=== PATIENT | female | born 1935 | race Caucasian/White ===

== ENCOUNTER → 2016-10-20 | Outpatient (CLI) | payer OTHER, MEDICAID ==
[2012-11-29 10:23] VITALS: BP 176/79
--- NOTE | 2016-10-22 14:52 | MG ---
HISTORY: SCREENING Comparison: Multiple priors dating back to April 22, 2008 FINDINGS: Bilateral CC and MLO projections of the right and left breast were obtained. Heterogeneously dense fibroglandular tissue is seen to be present without significant interval change. No suspicious arch itectural distortion, mass or clustered microcalcifications can be observed to suggest malignancy. No skin thickening or nipple retraction is appreciated. No pathological lymphadenopathy can be ghazala ntified. Benign-appearing calcifications are noted within the right and left breast. IMPRESSION: NO RADIOGRAPHIC EVIDENCE OF MALIGNANCY. ACR CATEGORY 2 - benign findings. FOLLOW-UP EXAM 1 YEAR. Diagnostic CAD was utilized and reviewed. * 0 (ZERO) - ASSESSMENT INCOMPLETE; ADDITIONAL IMAGING IS NEEDED. * 1/ (ONE) - NEGATIVE. * 2/II (TWO) - BENIGN FINDINGS. * 3/III (THREE) - PROBABLY BENIGN FINDING; SHORT INTERVAL FOLLOW-UP SUGGESTED. * 4/IV (FOUR) - SUSPICIOUS ABNORMALITY; BIOPSY SHOULD BE CONSIDERED. * 5/V (FIVE) - HIGHLY SUSPICIOUS OF MALIGNANCY; BIOPSY SHOULD BE PERFORMED. A NEGATIVE X-RAY REPORT SHOULD NOT DELAY BIOPSY IF A DOMINANT OR CLINICALLY SUSPICIOUS MASS IS PRESENT; 4 TO 8 PERCENT OF CANCERS ARE NOT IDENTIFIED BY X-RAY. A NEG ATIVE REPORT MAY REINFORCE THE CLINICAL IMPRESSION. ADENOSIS AND DENSE BREASTS MAY OBSCURE AN UNDER LYING NEOPLASM. Reported By:
== END ==
LOC: RAD 15:07
PROVIDERS: ATTEND Family Medicine
DX: Z12.31 Encounter for screening mammogram for malignant neoplasm of breast (principal)
CPT/HCPCS: 77067

== ENCOUNTER 2020-02-21 10:51 | Inpatient (IN) ==
--- NOTE | 2020-02-21 11:06 | DR.DIZZY ---
HPI Time seen Time Seen by Provider: 02/21/20 11:00 Complaint Chief Complaint Doctor Comments: pt presents with weakness she usually walks with walker not able to do so today began today no fever chills no n/v/d + dysuria Context Stroke Symptoms: None PMH PMH Past Surgical History: Yes ROS Review of Systems Constitutional: Weakness and Fatigue Eyes: No Symptoms Reported ENTM: No Symptoms Reported Respiratoy: No Symptoms Reported Cardiovascular: No Symptoms Reported Gastrointestinal/Abdominal: No Symptoms Reported Genitourinary: Dysuria Neurological: Weakness Musculoskeletal: Other (weakness usualy walks with walker unable to do so today ) Integumentary: No Symptoms Reported Hematologic/Lymphatic: No Symptoms Reported Endocrine: No Symptoms Reported Psychiatric: No Symptoms Reported All Other Systems: Reviewed and Negative PE Vital Signs Vitals: Pulse Rate 71 Respiratory Rate 18 Blood Pressure 142/66 O2 Sat by Pulse Oximetry 99 General Limitations: Other (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) General Appearance: Alert, In No Apparent Distress and Other (weak ) Head Head Exam: Normal Inspection, Atraumatic and Normocephalic Eyes Eye exam: Normal Appearance, PERRL and EOMI; negative Scleral Icterus, Conjunctival Injection and Nystagmus Pupils: Regular, Round: Bilateral Sclera/Conjunctival: Normal Inspection: Bilateral Anterior Chamber: Normal Inspection: Bilateral Posterior Chamber: Deferred: Bilateral ENT ENT Exam: Normal Exam, Normal Oropharynx, Normal External Ear Exam and Mucous Membranes Moist Neck Neck Exam: Normal Inspection, Full ROM and Trachea Midline; negative Tenderness and Meningismus Chest Chest Inspection: Normal Inspection and Symmetric Chest Wall Rise; negative Tenderness Respiratory Respiratory Exam: Normal Lung Sounds Bilat; negative Accessory Muscle Use and Chest Wall Tenderness Respiratory Exam: Bilateral: Clear to Auscultation Cardiovascular Cardiovascular Exam: Regular Rate, Normal Rhythm and Normal Heart Sounds Abdominal Exam Abdominal Exam: Normal Inspection and Soft; negative Distention, Tenderness, Guarding, Rebound and Rigidity Rectal Rectal Exam: Deferred Extremeties Extremities Exam: Normal Inspection, Full ROM and Other (PT IS WEAK AND FRAIL ) Back Back Exam: Normal Inspection and Full ROM; negative Tenderness, (R) CVA Tenderness, (L) CVA Tenderness and Muscle Spasm Neurologic Neurological Exam: Alert, Oriented X3 and Other (stable [facility] too weak to ambulate) Speech: Expressive Aphasia Psychiatric Psychiatric Exam: Normal Affect and Normal Mood Skin Skin Exam: Warm, Dry and Intact MDM Differential Diagnosis Differential Diagnosis: Anemia, Dehydration, Electrolyte disorder, Hypoglycemia, Myocardial infarction and Other Differential Diagnosis Comment: sepsis uti covid ROR Labs Reviewed Laboratory Results Reviewed?: Yes Result Diagrams: 02/21/20 11:32 02/21/20 11:32 Laboratory: WBC 2.3 X10^3/uL (3.6-10.0) L 02/21/20 11:32 RBC 4.27 X10^6/uL (3.5-5.4) 02/21/20 11:32 Hgb 12.1 g/dL (12.0-16.0) 02/21/20 11:32 Hct 37.6 % (36.0-47.0) 02/21/20 11:32 MCV 88.2 fL (80.0-100.0) 02/21/20 11:32 MCH 28.4 pg (27.0-34.0) 02/21/20 11:32 MCHC 32.2 g/dL (33.0-35.0) L 02/21/20 11:32 RDW 15.0 % (11.6-16.5) 02/21/20 11:32 Plt Count 116 X10^3/uL (150.0-450.0) L 02/21/20 11:32 Plt Count Comment Adequate (ADEQUATE) 02/21/20 11:32 MPV 10.0 fL (7.4-11.0) 02/21/20 11:32 Neut % (Auto) 47.7 % (42.0-75.0) 02/21/20 11:32 Lymph % (Auto) 27.3 % (21.0-51.0) 02/21/20 11:32 [place] % (Auto) 21.2 % (0.0-13.0) H 02/21/20 11:32 Eos % (Auto) 3.5 % (0.9-2.9) H 02/21/20 11:32 Baso % (Auto) 0.3 % (0.2-1.0) 02/21/20 11:32 Neut # (Auto) 1.1 x10^3/uL (2.2-4.8) L 02/21/20 11:32 Lymph # (Auto) 0.6 X10^3/uL (1.3-2.9) L 02/21/20 11:32 [place] # (Auto) 0.5 x10^3/uL (0.3-0.8) 02/21/20 11:32 Eos # (Auto) 0.1 x10^3/uL (0.0-0.2) 02/21/20 11:32 Baso # (Auto) 0.0 X10^3/uL (0.0-0.1) 02/21/20 11:32 Absolute Nucleated RBC 0.1 /100WBC 02/21/20 11:32 Total Counted 100 02/21/20 11:32 Neutrophils % (Manual) 51 % (39-76) 02/21/20 11:32 Band Neutrophils % 1 % (0-10) 02/21/20 11:32 Lymphocytes % (Manual) 30 % (13-43) 02/21/20 11:32 Monocytes % (Manual) 16 % (4-9) H 02/21/20 11:32 Eosinophils % (Manual) 2 % (0-6) 02/21/20 11:32 Plt Morphology Comment Normal (NORMAL) 02/21/20 11:32 RBC Morphology Normal (NORMAL) 02/21/20 11:32 Sodium 138 mmol/L (136-145) 02/21/20 11:32 Corrected Sodium TNP 02/21/20 11:32 Potassium 4.0 mmol/L (3.5-5.1) 02/21/20 11:32 Chloride 101 mmol/L (98-107) 02/21/20 11:32 Carbon Dioxide 27.5 mmol/L (21-32) 02/21/20 11:32 BUN 26 mg/dL (7-18) H 02/21/20 11:32 Creatinine 1.41 mg/dL (0.55-1.02) H 02/21/20 11:32 Est GFR (MDRD) Af Amer 46 (>60) L 02/21/20 11:32 Est GFR (MDRD) Non-Af 38 (>60) L 02/21/20 11:32 Glucose 110 mg/dL (65-99) H 02/21/20 11:32 Lactic Acid 1.9 mmol/L (0.4-2.0) 02/21/20 15:05 Calcium 9.5 mg/dL (8.5-10.1) 02/21/20 11:32 Corrected Calcium 10.4 mg/dL (8.5-10.1) H 02/21/20 11:32 Total Bilirubin 0.20 mg/dL (0.2-1.0) 02/21/20 11:32 AST 31 Units/L (15-37) 02/21/20 11:32 ALT 22 Units/L (12-78) 02/21/20 11:32 Alkaline Phosphatase 129 Units/L (46-116) H 02/21/20 11:32 Troponin I < 0.02 ng/mL (0-1.5) 02/21/20 11:32 B-Natriuretic Peptide 137 pg/mL (0-79) H 02/21/20 11:32 Total Protein 6.4 g/dL (6.4-8.2) 02/21/20 11:32 Albumin 2.9 g/dL (3.4-5.0) L 02/21/20 11:32 Globulin 3.5 g/dL (2.5-4.5) 02/21/20 11:32 Albumin/Globulin Ratio 0.8 Ratio (1.1-2.1) L 02/21/20 11:32 Specimen Type Catherized urine 02/21/20 14:00 Urine Color Yellow (YELLOW) 02/21/20 14:00 Urine Appearance Hazy (CLEAR) 02/21/20 14:00 Urine pH 6.0 (5.0 - 8.0) 02/21/20 14:00 Ur Specific [place] 1.020 (1.000-1.030) 02/21/20 14:00 Urine Protein 2+ (NEGATIVE) 02/21/20 14:00 Urine Glucose (UA) Negative (NEGATIVE) 02/21/20 14:00 Urine Ketones Negative (NEGATIVE) 02/21/20 14:00 Urine Occult Blood 1+ (NEGATIVE) 02/21/20 14:00 Urine Nitrite Positive (NEGATIVE) 02/21/20 14:00 Urine Bilirubin Negative (NEGATIVE) 02/21/20 14:00 Urine Urobilinogen Normal (NORMAL) 02/21/20 14:00 Ur Leukocyte Esterase 2+ (NEGATIVE) 02/21/20 14:00 Urine RBC 3-5 /HPF (0-3) A 02/21/20 14:00 Urine WBC 30-50 /HPF (0-5) A 02/21/20 14:00 Ur Squamous Epith Cells Few /HPF (NEGATIVE) 02/21/20 14:00 Urine Bacteria 2+ /HPF (NEGATIVE) 02/21/20 14:00 Ur Culture Indicated? Yes/culture set up 02/21/20 14:00 Influenza Type A (PCR) Negative (NEGATIVE) 02/21/20 14:18 Influenza Type B (PCR) Negative (NEGATIVE) 02/21/20 14:18 SARS CoV-2 RNA Rapid HEATHER Positive (NEGATIVE) A 02/21/20 14:18 EKG Rate: 72 [place]: Normal Rhythm: NSR Block: LBBB Hypertrophy: LVH ST: Nonsp Opioid Opioid Risk Tool Total: 0 Total Score Risk Category: Low Risk Copyright: Denzel PUGH predicting aberrant behaviors Diagnosis Discharge Problem: Acute UTI, Weakness Pneumonia Qualifiers: Pneumonia type: due to unspecified organism
[2020-02-21 12:03] LABS: ALANINE AMINOTRANSFERASE 22 Units/L (12-78); ALBUMIN 2.9 g/dL (3.4-5.0); ALKALINE PHOSPHATASE 129 Units/L (46-116); ASPARTATE AMINO TRANSFERASE 31 Units/L (15-37); BLOOD UREA NITROGEN 26 mg/dL (7-18); CALCIUM 9.5 mg/dL (8.5-10.1); CARBON DIOXIDE 27.5 mmol/L (21-32); CHLORIDE 101 mmol/L (98-107); COR CA(FOR HYPOALB) 10.4 mg/dL (8.5-10.1); CREATININE 1.41 mg/dL (0.55-1.02); SODIUM 138 mmol/L (136-145); TOTAL PROTEIN 6.4 g/dL (6.4-8.2); TROPONIN I < 0.02 ng/mL (0-1.5); eGFR NON BLACK RACES 38 (>60)
[2020-02-21 12:15] LABS: BASOPHILS % (AUTO) 0.3 % (0.2-1.0); EOSINOPHILS # (AUTO) 0.1 x10^3/uL (0.0-0.2); EOSINOPHILS % (AUTO) 3.5 % (0.9-2.9); HEMATOCRIT 37.6 % (36.0-47.0); HEMOGLOBIN 12.1 g/dL (12.0-16.0); LYMPHOCYTES # (AUTO) 0.6 X10^3/uL (1.3-2.9); LYMPHOCYTES % (AUTO) 27.3 % (21.0-51.0); MEAN CORPUSCULAR HEMOGLOBIN 28.4 pg (27.0-34.0); MEAN CORPUSCULAR HGB CONC 32.2 g/dL (33.0-35.0); MEAN CORPUSCULAR VOLUME 88.2 fL (80.0-100.0); MONOCYTES # (AUTO) 0.5 x10^3/uL (0.3-0.8); MONOCYTES % (AUTO) 21.2 % (0.0-13.0); NEUTROPHILS # (AUTO) 1.1 x10^3/uL (2.2-4.8); NEUTROPHILS % (AUTO) 47.7 % (42.0-75.0); PLATELET COUNT 116 X10^3/uL (150.0-450.0); RED BLOOD COUNT 4.27 X10^6/uL (3.5-5.4); WHITE BLOOD COUNT 2.3 X10^3/uL (3.6-10.0)
--- NOTE | 2020-02-21 12:25 | RAD ---
HISTORYPER EMS, PT HAVING GENERALIZED WEAKNESS, VOMITTING THIS AM AND "COULDN'T WALK LIKE SHE NORMALLY DOES" PT HAS HX OF CVA WITH DIFFICULTY WITH EXPRESSION OF WORDS. ABLE TO MAKE NEEDS KNOWNSTUDYCHEST, 1 VIEWCOMPARISONNoneFINDINGSThe trachea is midline. Normal heart size. There is prominence of the aortic knob. There is interstitial radiopacities in the midlung zonesNo evidence of pleural effusion. There is also some emphysema in the upper lobes. No pneumothoraxIMPRESSIONInterstitial radiopacities in the midlung zones, viral pneumonia is not excluded. We do not have priors for comparison.Electronically signed by: Jessica Hammond (Feb 21, 2020 12:24:01)
[2020-02-21] MEDS ORDERED: ZITHROMAX INJ 500 MG VIAL 500 MG in NS 250 ML IV 250 ML IV SCH ×3 (12:34→15:49)
[2020-02-21] MEDS ORDERED: DECADRON INJ IVP ONE ×2 (12:34→13:24)
[2020-02-21] MEDS ORDERED: VENTOLIN or PROAIR HFA IN ONE ×2 (12:34→13:24)
[2020-02-21 12:42] LABS: BAND NEUTROPHILS % 1 % (0-10); PLATELET MORPHOLOGY COMMENT NORMAL (NORMAL)
[2020-02-21] MEDS ORDERED: ZITHROMAX INJ 500 MG VIAL IV ONE (12:57)
[2020-02-21] MEDS ORDERED: DECADRON INJ ONE (12:57)
[2020-02-21] MEDS ORDERED: NS 1000 ML 1,000 ML ONE (12:57)
[2020-02-21] MEDS ORDERED: NS 250 ML IV 250 ML IV ONE (12:57)
[2020-02-21] MEDS: NS 1000 ML 1,000 ML IV SCH ×2 (13:05→22:00)
[2020-02-21 14:51] LABS: APPEARANCE,URINE HAZY (CLEAR); BLOOD/HEMOGLOBIN,URINE 1+ (NEGATIVE); COLOR,URINE YELLOW (YELLOW); GLUCOSE, URINE NEGATIVE (NEGATIVE); KETONES,URINE NEGATIVE (NEGATIVE); NITRITES,URINE POSITIVE (NEGATIVE); PROTEIN,URINE 2+ (NEGATIVE)
[2020-02-21 14:52] LABS: BACTERIA,URINE 2+ /HPF (NEGATIVE); BILIRUBIN,URINE NEGATIVE (NEGATIVE); LEUKOCYTE ESTERASE ,URINE 2+ (NEGATIVE); SQUAMOUS EPITHELIAL CELL,UR FEW /HPF (NEGATIVE); UROBILINOGEN,URINE NORMAL (NORMAL)
[2020-02-21] MEDS ORDERED: VENTOLIN or PROAIR HFA IN PRN (15:46)
[2020-02-21] MEDS: ROCEPHIN 1 GRAM IV PREMIX 1 G/50 ML IV.SOLN. IV SCH (17:00)
[2020-02-21] MEDS: NORCO 5/325 MG TAB PO PRN (20:43)
[2020-02-21] MEDS: RESTORIL CAP 15 MG PO PRN (20:44)
[2020-02-22] MEDS: NS 1000 ML 1,000 ML IV SCH ×3 (04:52→21:09)
[2020-02-22 06:59] LABS: BASOPHILS % (AUTO) 0.2 % (0.2-1.0); HEMATOCRIT 36.8 % (36.0-47.0); LYMPHOCYTES # (AUTO) 0.3 X10^3/uL (1.3-2.9); LYMPHOCYTES % (AUTO) 10.8 % (21.0-51.0); MEAN CORPUSCULAR HEMOGLOBIN 28.6 pg (27.0-34.0); MEAN CORPUSCULAR HGB CONC 32.7 g/dL (33.0-35.0); MEAN CORPUSCULAR VOLUME 87.3 fL (80.0-100.0); MEAN PLATELET VOLUME 9.6 fL (7.4-11.0); MONOCYTES # (AUTO) 0.7 x10^3/uL (0.3-0.8); MONOCYTES % (AUTO) 21.9 % (0.0-13.0); NEUTROPHILS % (AUTO) 67.1 % (42.0-75.0); PLATELET COUNT 137 X10^3/uL (150.0-450.0); RED BLOOD COUNT 4.21 X10^6/uL (3.5-5.4); RED CELL DISTRIBUTION WIDTH 14.3 % (11.6-16.5)
[2020-02-22 07:11] LABS: ALBUMIN 2.8 g/dL (3.4-5.0); CALCIUM 9.6 mg/dL (8.5-10.1); COR CA(FOR HYPOALB) 10.6 mg/dL (8.5-10.1); CREATININE 1.12 mg/dL (0.55-1.02); TOTAL PROTEIN 6.3 g/dL (6.4-8.2)
[2020-02-22 07:16] LABS: CARBON DIOXIDE 22.3 mmol/L (21-32)
[2020-02-22 07:37] LABS: PLATELET MORPHOLOGY COMMENT NORMAL (NORMAL)
[2020-02-22 09:04] VITALS: BMI 35.9
[2020-02-22] MEDS ORDERED: PriLOSEC PO SCH (10:00)
[2020-02-22] MEDS: ZITHROMAX INJ 500 MG VIAL 500 MG in D5W 250 ML IV 250 ML IV SCH ×2 (11:01→11:28)
[2020-02-22] MEDS: PROTONIX INJ 40 MG VIAL IVP SCH ×2 (11:02→20:09)
[2020-02-22] MEDS: DECADRON INJ IVP SCH (11:03)
[2020-02-22] MEDS: ROCEPHIN 1 GRAM IV PREMIX 1 G/50 ML IV.SOLN. IV SCH (11:03)
[2020-02-22] MEDS: COZAAR PO SCH (11:04)
[2020-02-22] MEDS: ELAVIL PO SCH ×2 (11:06→20:08)
[2020-02-22] MEDS: LOPRESSOR TAB 50 MG PO SCH ×2 (11:08→20:08)
[2020-02-22] MEDS: ATIVAN TAB 1 MG PO SCH ×2 (11:20→21:48)
[2020-02-22] MEDS: LASIX PO SCH (11:20)
[2020-02-22] MEDS: SYNTHROID 150 mcg TAB PO SCH (11:21)
[2020-02-22] MEDS: PERPHENAZINE 2 MG PO SCH ×2 (11:36→20:09)
[2020-02-22] MEDS ORDERED: REMDESIVIR 200 MG in NS 250 ML IV 250 ML IV SCH (14:00)
--- NOTE | 2020-02-22 14:05 | DR.H&P ---
H&P - History & Physical for Day of: H&P Date: 02/21/20 - Chief Complaint Chief Complaint: DIFFUSE WEAKNESS, POOR PO INTAKE, COUGH COVID 19+ - History of Present Illness History of Present Illness: PT IS 85 WF ER ADMISSION WITH CO INCREASED DIFFUSE WEAKNESS AND IMPAIRED MOBILITY FOLLOWING COVID 19 VIRAL ILLNESS. CAREGIVER REPORTS SHE HAD NOT BEEN EATING AND DRINKING MUCH, CANNOT MANAGE HER AT HOME WITH WEAKNESS. PT HAD PMH OF AFIB, HTN, CAD, MAYRA, CHRONIC DEMENTIA. PT HAD PNEUMONIA ON CXR. PT ADMITTED FOR EVALUATION OF ACUTE ILLNESS - Past Medical History Past Medical History: CHF, COPD, CVA, Hypertension, Hyperthyroidism - Past Surgical History Surgical History: Hysterectomy - Family History Family Medical History: Diabetes Mellitus, Hypertension - Social History Does patient currently use any type of tobacco product: No Have you used tobacco products in the last 12 months: No Type of Tobacco Use: None Does any household member use tobacco: No Alcohol Use: None Drug Use: None - Medications Home Medications: Penicillins Allergy (Verified 02/21/20 11:09) CONTINUE taking the following medications amitriptyline 10 mg PO BID 02/21/20 [History] furosemide 40 mg PO DAILY 02/21/20 [History] hydroxychloroquine 200 mg PO DAILY 02/21/20 [History] levothyroxine 150 mcg PO DAILY 02/21/20 [History] lorazepam 1 mg PO BID 02/21/20 [History] losartan 50 mg PO DAILY 02/21/20 [History] metoprolol tartrate 75 mg PO BID 02/21/20 [History] omeprazole 40 mg PO DAILY 02/21/20 [History] oxycodone-acetaminophen 1 tab PO .Q6HH 02/21/20 [History] perphenazine 2 mg PO BID 02/21/20 [History] potassium chloride 20 meq PO DAILY 02/21/20 [History] - Review of Systems Constitutional: Weakness, Malaise Eyes: No Symptoms Reported ENT: No Symptoms Reported Respiratory: Cough Cardiovascular: No Symptoms Reported Gastrointestinal: Nausea, Other (LOSS OF APPETITE) Genitourinary: No Symptoms Reported Musculoskeletal: No Symptoms Reported Skin: No Symptoms Reported Neurological: Weakness, Confusion - Physical Exam Vital Signs: Temperature 99.8 F Pulse Rate [Left Radial] 94 Pulse Rate 117 Respiratory Rate 20 Blood Pressure [Left Arm] 132/62 Blood Pressure 125/64 O2 Sat by Pulse Oximetry 95 Oriented: Normal Eyes: Normal Ear: Normal Nose: Normal Throat: Normal Respiratory: RLL Diminished, LLL Diminished Cardiovascular: Tachycardia, Irregular : Normal Auscultation: Bowel Sounds: Normal Palpation: Normal Tenderness: Normal Skin: Decreased Turgur Musculoskeletal: Normal Psychiatric: Anxiety Affect: Anxious Speech Pattern: Inappropriate - Assessment/Plan (1) Pneumonia Qualifiers: Pneumonia type: due to unspecified organism Status: Acute Plan: ADMIT, CARDIAC MONITORING, VERIFY AND RESUME HOME MEDICATION. BC AND UC, IV HYDRATION. BP CONTROL, SUPPLEMENTAL O2. IV ATBX, IV REMDESIVIR (2) Afib Status: Acute (3) Dementia Status: Acute (4) COVID-19 Status: Acute (5) Acute UTI Status: Acute (6) Weakness Status: Acute - Allergies Allergies/Adverse Reactions: Allergies Allergy/AdvReac Type Severity Reaction Status Date / Time Penicillins Allergy Verified 02/21/20 11:09
[2020-02-22] MEDS: HALDOL INJ IVP PRN (16:52)
[2020-02-23] MEDS: NS 1000 ML 1,000 ML IV SCH ×4 (05:44→20:21)
--- NOTE | 2020-02-23 06:22 | RAD ---
HISTORYcovidSTUDYAP [id number]/17/2020FINDINGSContinued normal heart size and contour. Slight interval increase in bilateral interstitial midlung infiltrates. No focal consolidation, pleural fluid component or pneum othorax seen.IMPRESSIONInterval increase in bilateral perihilar midlung infiltrates consistent with a typical pneumonia.Electronically signed by: SANTIAGO BELL (Feb 23, 2020 06:20:51)
[2020-02-23 06:47] LABS: BASOPHILS % (AUTO) 0.1 % (0.2-1.0); HEMATOCRIT 35.4 % (36.0-47.0); HEMOGLOBIN 11.5 g/dL (12.0-16.0); LYMPHOCYTES # (AUTO) 0.5 X10^3/uL (1.3-2.9); LYMPHOCYTES % (AUTO) 14.5 % (21.0-51.0); MEAN CORPUSCULAR HEMOGLOBIN 28.5 pg (27.0-34.0); MEAN CORPUSCULAR HGB CONC 32.6 g/dL (33.0-35.0); MEAN CORPUSCULAR VOLUME 87.4 fL (80.0-100.0); MEAN PLATELET VOLUME 9.5 fL (7.4-11.0); MONOCYTES # (AUTO) 0.7 x10^3/uL (0.3-0.8); MONOCYTES % (AUTO) 20.2 % (0.0-13.0); NEUTROPHILS # (AUTO) 2.2 x10^3/uL (2.2-4.8); NEUTROPHILS % (AUTO) 65.2 % (42.0-75.0); PLATELET COUNT 169 X10^3/uL (150.0-450.0); RED BLOOD COUNT 4.05 X10^6/uL (3.5-5.4); RED CELL DISTRIBUTION WIDTH 14.6 % (11.6-16.5); WHITE BLOOD COUNT 3.4 X10^3/uL (3.6-10.0)
[2020-02-23 06:54] LABS: ALBUMIN 2.6 g/dL (3.4-5.0); CALCIUM 9.2 mg/dL (8.5-10.1); CARBON DIOXIDE 28.4 mmol/L (21-32); COR CA(FOR HYPOALB) 10.3 mg/dL (8.5-10.1); CREATININE 1.13 mg/dL (0.55-1.02); TOTAL PROTEIN 5.9 g/dL (6.4-8.2)
[2020-02-23 07:11] LABS: BAND NEUTROPHILS % 1 % (0-10); PLATELET MORPHOLOGY COMMENT NORMAL (NORMAL)
[2020-02-23] MEDS: ATIVAN TAB 1 MG PO SCH ×2 (10:08→20:20)
[2020-02-23] MEDS: COZAAR PO SCH (10:08)
[2020-02-23] MEDS: LOPRESSOR TAB 50 MG PO SCH ×2 (10:09→20:21)
[2020-02-23] MEDS: K-DUR TAB 20 MEQ PO SCH (10:09)
[2020-02-23] MEDS: LASIX PO SCH (10:09)
[2020-02-23] MEDS: ELAVIL PO SCH ×2 (10:09→20:21)
[2020-02-23] MEDS: PLAQUENIL PO SCH (10:10)
[2020-02-23] MEDS: PROTONIX INJ 40 MG VIAL IVP SCH ×2 (10:10→20:21)
[2020-02-23] MEDS: REMDESIVIR 100 MG in NS 250 ML IV 250 ML IV SCH (10:11)
[2020-02-23] MEDS: ROCEPHIN 1 GRAM IV PREMIX 1 G/50 ML IV.SOLN. IV SCH (10:11)
[2020-02-23] MEDS: SYNTHROID 150 mcg TAB PO SCH (10:12)
[2020-02-23] MEDS: PERPHENAZINE 2 MG PO SCH ×2 (10:12→20:21)
[2020-02-23] MEDS: ZITHROMAX INJ 500 MG VIAL 500 MG in D5W 250 ML IV 250 ML IV SCH (10:12)
[2020-02-23] MEDS: DECADRON INJ IVP SCH (10:19)
[2020-02-23] MEDS ORDERED: LASIX IVP ONE (10:47)
[2020-02-23] MEDS: LEVAQUIN PREMIX IV 500 MG 500 MG/100 ML BAG IV SCH (12:21)
[2020-02-23] MEDS: HALDOL INJ IVP PRN (19:47)
[2020-02-24] MEDS: NS 1000 ML 1,000 ML IV SCH ×3 (05:22→21:05)
[2020-02-24 06:38] LABS: BASOPHILS % (AUTO) 0.1 % (0.2-1.0); HEMATOCRIT 36.7 % (36.0-47.0); HEMOGLOBIN 12.1 g/dL (12.0-16.0); LYMPHOCYTES # (AUTO) 0.5 X10^3/uL (1.3-2.9); LYMPHOCYTES % (AUTO) 12.9 % (21.0-51.0); MEAN CORPUSCULAR HEMOGLOBIN 28.7 pg (27.0-34.0); MEAN CORPUSCULAR VOLUME 87.1 fL (80.0-100.0); MEAN PLATELET VOLUME 9.5 fL (7.4-11.0); MONOCYTES # (AUTO) 0.7 x10^3/uL (0.3-0.8); MONOCYTES % (AUTO) 18.8 % (0.0-13.0); NEUTROPHILS # (AUTO) 2.7 x10^3/uL (2.2-4.8); NEUTROPHILS % (AUTO) 68.2 % (42.0-75.0); PLATELET COUNT 189 X10^3/uL (150.0-450.0); RED BLOOD COUNT 4.21 X10^6/uL (3.5-5.4); RED CELL DISTRIBUTION WIDTH 14.6 % (11.6-16.5)
[2020-02-24 06:47] LABS: ALBUMIN 2.5 g/dL (3.4-5.0); CALCIUM 9.2 mg/dL (8.5-10.1); CARBON DIOXIDE 27.9 mmol/L (21-32); COR CA(FOR HYPOALB) 10.4 mg/dL (8.5-10.1); CREATININE 1.15 mg/dL (0.55-1.02); TOTAL PROTEIN 5.8 g/dL (6.4-8.2)
[2020-02-24] MEDS: ATIVAN TAB 1 MG PO SCH ×2 (08:13→20:25)
[2020-02-24] MEDS: K-DUR TAB 20 MEQ PO SCH (08:14)
[2020-02-24] MEDS: LASIX PO SCH (08:14)
[2020-02-24] MEDS: ELAVIL PO SCH ×2 (08:14→20:25)
[2020-02-24] MEDS: COZAAR PO SCH (08:14)
[2020-02-24] MEDS: LOPRESSOR TAB 50 MG PO SCH ×2 (08:15→20:25)
[2020-02-24] MEDS: LEVAQUIN PREMIX IV 500 MG 500 MG/100 ML BAG IV SCH (08:15)
[2020-02-24] MEDS: PERPHENAZINE 2 MG PO SCH ×2 (08:16→20:14)
[2020-02-24] MEDS: SYNTHROID 150 mcg TAB PO SCH (08:16)
[2020-02-24] MEDS: PLAQUENIL PO SCH (08:16)
[2020-02-24] MEDS: PROTONIX INJ 40 MG VIAL IVP SCH ×2 (08:17→20:40)
[2020-02-24] MEDS: ZITHROMAX INJ 500 MG VIAL 500 MG in D5W 250 ML IV 250 ML IV SCH (08:17)
[2020-02-24] MEDS: REMDESIVIR 100 MG in NS 250 ML IV 250 ML IV SCH (08:17)
[2020-02-24] MEDS: ROBITUSSIN DM PO SCH ×4 (12:36→20:35)
[2020-02-24] MEDS ORDERED: TYLENOL SUPP 650 MG ONE (23:25)
[2020-02-25] MEDS: TYLENOL SUPP 650 MG PR PRN (00:06)
[2020-02-25] MEDS: NS 1000 ML 1,000 ML IV SCH ×3 (05:57→21:49)
[2020-02-25 06:49] LABS: ALBUMIN 2.2 g/dL (3.4-5.0); CARBON DIOXIDE 26.6 mmol/L (21-32); COR CA(FOR HYPOALB) 10.4 mg/dL (8.5-10.1); CREATININE 1.15 mg/dL (0.55-1.02); TOTAL PROTEIN 5.3 g/dL (6.4-8.2)
[2020-02-25 06:58] LABS: BASOPHILS % (AUTO) 0.1 % (0.2-1.0); HEMATOCRIT 37.6 % (36.0-47.0); HEMOGLOBIN 12.3 g/dL (12.0-16.0); LYMPHOCYTES # (AUTO) 0.8 X10^3/uL (1.3-2.9); MEAN CORPUSCULAR HEMOGLOBIN 28.4 pg (27.0-34.0); MEAN CORPUSCULAR HGB CONC 32.7 g/dL (33.0-35.0); MEAN CORPUSCULAR VOLUME 86.8 fL (80.0-100.0); MEAN PLATELET VOLUME 9.5 fL (7.4-11.0); MONOCYTES # (AUTO) 1.4 x10^3/uL (0.3-0.8); MONOCYTES % (AUTO) 17.4 % (0.0-13.0); NEUTROPHILS # (AUTO) 5.8 x10^3/uL (2.2-4.8); NEUTROPHILS % (AUTO) 72.5 % (42.0-75.0); PLATELET COUNT 196 X10^3/uL (150.0-450.0); RED BLOOD COUNT 4.33 X10^6/uL (3.5-5.4); RED CELL DISTRIBUTION WIDTH 14.6 % (11.6-16.5); WHITE BLOOD COUNT 7.9 X10^3/uL (3.6-10.0)
--- NOTE | 2020-02-25 08:24 | RAD ---
HISTORYPNEUMONIASTUDYCHEST, 1 [id number]/19/2020FINDINGSThe trachea is midline. The cardiac silhouette is stable. Worsening bilateral airspace opacities, most prominent in the right upper lobe. The bony thorax is unremarkable.IMPRESSIONWorsening bilateral airspace disease concerning for pneumonia. Recommend follow-up to resolution.Electronically signed by: JONNA FIGUEREDO (Feb 25, 2020 08:22:26)
[2020-02-25] MEDS: COZAAR PO SCH (09:28)
[2020-02-25] MEDS: ATIVAN TAB 1 MG PO SCH ×2 (09:28→23:30)
[2020-02-25] MEDS: ELAVIL PO SCH ×2 (09:28→22:50)
[2020-02-25] MEDS: LEVAQUIN PREMIX IV 500 MG 500 MG/100 ML BAG IV SCH (09:29)
[2020-02-25] MEDS: K-DUR TAB 20 MEQ PO SCH (09:29)
[2020-02-25] MEDS: LOPRESSOR TAB 50 MG PO SCH ×2 (09:32→23:30)
[2020-02-25] MEDS: PROTONIX INJ 40 MG VIAL IVP SCH ×2 (09:33→20:15)
[2020-02-25] MEDS: PLAQUENIL PO SCH (09:33)
[2020-02-25] MEDS: ZITHROMAX INJ 500 MG VIAL 500 MG in D5W 250 ML IV 250 ML IV SCH (09:35)
[2020-02-25 09:36] LABS: ABG BASE EXCESS 0.9 mmol/L (-2.0-2.0); ABG HCO3 23.8 mmol/L (22-26)
[2020-02-25] MEDS: SYNTHROID 150 mcg TAB PO SCH (09:36)
[2020-02-25 09:37] LABS: ABG ALLEN TEST POS
[2020-02-25] MEDS: ROBITUSSIN DM PO SCH ×4 (09:39→21:05)
[2020-02-25] MEDS: DUONEB 0.5 MG/3 MG (3 mL) NEB SCH ×4 (09:40→20:50)
[2020-02-25] MEDS: PULMICORT NEB TX 0.5 MG NEB SCH ×2 (10:17→20:50)
[2020-02-25] MEDS: REMDESIVIR 100 MG in NS 250 ML IV 250 ML IV SCH (10:24)
[2020-02-25] MEDS: PERCOCET TAB 5/325 MG PO PRN (10:42)
[2020-02-25] MEDS: PERPHENAZINE 2 MG PO SCH ×2 (14:22→22:50)
[2020-02-25] MEDS: LOVENOX INJ 40 MG SYR SC SCH (14:23)
[2020-02-25] MEDS ORDERED: LASIX IVP ONE (18:58)
[2020-02-26] MEDS: DUONEB 0.5 MG/3 MG (3 mL) NEB SCH ×6 (00:40→20:00)
--- NOTE | 2020-02-26 05:20 | RAD ---
HISTORYPNEUMONIASTUDYCHEST, 1 [id number]/21/2020FINDINGSThe trachea is midline. The cardiac silhouette is stable. Bilateral pulmonary opacities/infiltrates not appreciably changed. No pneumothorax or large pleural effusions. Low lung volume.. The bony thorax is unremarkable.IMPRESSIONNo appreciable interval change.Electronically signed by: Shannan Vazquez (Feb 26, 2020 05:18:30)
[2020-02-26 06:48] LABS: BASOPHILS % (AUTO) 0.2 % (0.2-1.0); EOSINOPHILS % (AUTO) 0.1 % (0.9-2.9); HEMATOCRIT 37.7 % (36.0-47.0); HEMOGLOBIN 12.4 g/dL (12.0-16.0); LYMPHOCYTES # (AUTO) 0.6 X10^3/uL (1.3-2.9); LYMPHOCYTES % (AUTO) 5.3 % (21.0-51.0); MEAN CORPUSCULAR HEMOGLOBIN 28.7 pg (27.0-34.0); MEAN CORPUSCULAR VOLUME 87.1 fL (80.0-100.0); MEAN PLATELET VOLUME 9.3 fL (7.4-11.0); MONOCYTES # (AUTO) 2.1 x10^3/uL (0.3-0.8); NEUTROPHILS # (AUTO) 7.7 x10^3/uL (2.2-4.8); NEUTROPHILS % (AUTO) 74.4 % (42.0-75.0); PLATELET COUNT 162 X10^3/uL (150.0-450.0); RED BLOOD COUNT 4.33 X10^6/uL (3.5-5.4); RED CELL DISTRIBUTION WIDTH 14.7 % (11.6-16.5); WHITE BLOOD COUNT 10.4 X10^3/uL (3.6-10.0)
[2020-02-26 06:59] LABS: ALBUMIN 2.2 g/dL (3.4-5.0); CALCIUM 9.1 mg/dL (8.5-10.1); CARBON DIOXIDE 25.3 mmol/L (21-32); COR CA(FOR HYPOALB) 10.5 mg/dL (8.5-10.1); CREATININE 1.25 mg/dL (0.55-1.02); TOTAL PROTEIN 5.5 g/dL (6.4-8.2)
[2020-02-26 07:31] LABS: ABG BASE EXCESS 5.2 mmol/L (-2.0-2.0); ABG HCO3 24.2 mmol/L (22-26)
[2020-02-26] MEDS: ATIVAN TAB 1 MG PO SCH ×2 (08:10→21:12)
[2020-02-26] MEDS: COZAAR PO SCH (08:11)
[2020-02-26] MEDS: ELAVIL PO SCH ×2 (08:11→21:12)
[2020-02-26] MEDS: K-DUR TAB 20 MEQ PO SCH (08:12)
[2020-02-26] MEDS: LOPRESSOR TAB 50 MG PO SCH ×2 (08:12→21:13)
[2020-02-26] MEDS: SYNTHROID 150 mcg TAB PO SCH (08:13)
[2020-02-26] MEDS: ROBITUSSIN DM PO SCH ×4 (08:13→21:13)
[2020-02-26] MEDS: PLAQUENIL PO SCH (08:14)
[2020-02-26] MEDS: LEVAQUIN PREMIX IV 500 MG 500 MG/100 ML BAG IV SCH (08:14)
[2020-02-26] MEDS: PERPHENAZINE 2 MG PO SCH ×2 (08:15→21:13)
[2020-02-26] MEDS: PROTONIX INJ 40 MG VIAL IVP SCH ×2 (08:16→21:13)
[2020-02-26] MEDS: LOVENOX INJ 40 MG SYR SC SCH (08:18)
[2020-02-26] MEDS: PULMICORT NEB TX 0.5 MG NEB SCH ×2 (09:40→20:00)
[2020-02-26] MEDS: ZITHROMAX INJ 500 MG VIAL 500 MG in D5W 250 ML IV 250 ML IV SCH (09:42)
[2020-02-26] MEDS: HALDOL INJ IVP PRN (10:10)
[2020-02-26] MEDS: REMDESIVIR 100 MG in NS 250 ML IV 250 ML IV SCH (10:55)
[2020-02-26] MEDS ORDERED: LASIX IVP ONE (11:40)
[2020-02-26 12:28] LABS: BILIRUBIN,URINE NEGATIVE (NEGATIVE); BLOOD/HEMOGLOBIN,URINE NEGATIVE (NEGATIVE); GLUCOSE, URINE NEGATIVE (NEGATIVE); KETONES,URINE NEGATIVE (NEGATIVE); LEUKOCYTE ESTERASE ,URINE NEGATIVE (NEGATIVE); NITRITES,URINE NEGATIVE (NEGATIVE); PROTEIN,URINE NEGATIVE (NEGATIVE); UROBILINOGEN,URINE NORMAL (NORMAL)
[2020-02-26 12:29] LABS: APPEARANCE,URINE CLEAR (CLEAR); COLOR,URINE YELLOW (YELLOW)
[2020-02-26] MEDS: LASIX IVP SCH (16:27)
[2020-02-26] MEDS: NS 1000 ML 1,000 ML IV SCH (23:09)
[2020-02-27] MEDS: DUONEB 0.5 MG/3 MG (3 mL) NEB SCH ×6 (00:40→21:05)
[2020-02-27 05:31] LABS: ABG ALLEN TEST POS; ABG BASE EXCESS 5.8 mmol/L (-2.0-2.0); ABG HCO3 30.6 mmol/L (22-26)
[2020-02-27 05:43] LABS: BASOPHILS % (AUTO) 0.1 % (0.2-1.0); EOSINOPHILS % (AUTO) 0.3 % (0.9-2.9); HEMATOCRIT 35.1 % (36.0-47.0); HEMOGLOBIN 11.5 g/dL (12.0-16.0); LYMPHOCYTES # (AUTO) 0.4 X10^3/uL (1.3-2.9); LYMPHOCYTES % (AUTO) 3.7 % (21.0-51.0); MEAN CORPUSCULAR HEMOGLOBIN 28.8 pg (27.0-34.0); MEAN CORPUSCULAR HGB CONC 32.9 g/dL (33.0-35.0); MEAN CORPUSCULAR VOLUME 87.5 fL (80.0-100.0); MONOCYTES # (AUTO) 1.3 x10^3/uL (0.3-0.8); MONOCYTES % (AUTO) 13.2 % (0.0-13.0); NEUTROPHILS # (AUTO) 8.5 x10^3/uL (2.2-4.8); NEUTROPHILS % (AUTO) 82.7 % (42.0-75.0); PLATELET COUNT 230 X10^3/uL (150.0-450.0); RED BLOOD COUNT 4.01 X10^6/uL (3.5-5.4); RED CELL DISTRIBUTION WIDTH 14.9 % (11.6-16.5); WHITE BLOOD COUNT 10.2 X10^3/uL (3.6-10.0)
[2020-02-27 06:08] LABS: ALBUMIN 2.1 g/dL (3.4-5.0); CALCIUM 9.4 mg/dL (8.5-10.1); CARBON DIOXIDE 30.4 mmol/L (21-32); COR CA(FOR HYPOALB) 10.9 mg/dL (8.5-10.1); CREATININE 1.28 mg/dL (0.55-1.02); TOTAL PROTEIN 5.5 g/dL (6.4-8.2)
--- NOTE | 2020-02-27 07:37 | RAD ---
HISTORYCOVID+STUDYCHEST, 1 [id number]/22/2020TECHNIQUEAP view of the chestFINDINGSCardiac and mediastinal contours appear stable. No significant change in multifocal bilateral airspace disease. No definite pleural effusion or pneumothorax.IMPRESSIONNo significant change.Electronically signed by: Sacha German (Feb 27, 2020 07:35:40)
[2020-02-27] MEDS: PULMICORT NEB TX 0.5 MG NEB SCH ×2 (08:58→21:05)
[2020-02-27] MEDS: ZITHROMAX INJ 500 MG VIAL 500 MG in D5W 250 ML IV 250 ML IV SCH (10:41)
[2020-02-27] MEDS: COZAAR PO SCH (10:41)
[2020-02-27] MEDS: SYNTHROID 150 mcg TAB PO SCH (10:41)
[2020-02-27] MEDS: ATIVAN TAB 1 MG PO SCH (10:41)
[2020-02-27] MEDS: K-DUR TAB 20 MEQ PO SCH (10:41)
[2020-02-27] MEDS: LASIX IVP SCH ×2 (10:42→17:30)
[2020-02-27] MEDS: PROTONIX INJ 40 MG VIAL IVP SCH ×2 (10:42→22:30)
[2020-02-27] MEDS: PLAQUENIL PO SCH (10:42)
[2020-02-27] MEDS: PERPHENAZINE 2 MG PO SCH ×2 (10:42→22:30)
[2020-02-27] MEDS: ELAVIL PO SCH ×2 (10:43→22:30)
[2020-02-27] MEDS: LOPRESSOR TAB 50 MG PO SCH ×2 (10:43→22:30)
[2020-02-27] MEDS: LOVENOX INJ 40 MG SYR SC SCH (10:43)
[2020-02-27] MEDS: LEVAQUIN PREMIX IV 250 MG 250 MG/50 ML BAG IV SCH (10:43)
[2020-02-27] MEDS: SOLU-Medrol 40 MG VIAL IVP SCH ×3 (11:00→22:30)
[2020-02-27] MEDS: ROBITUSSIN DM PO SCH ×4 (12:50→22:30)
--- NOTE | 2020-02-27 15:42 | RAD ---
HISTORYABD DISENTION HTN, HYSTERECTOMYSTUDYKUBCOMPARISONNoneFINDINGSEvaluation of the abdomen demonstrates a normal bowel gas p attern. There is very mild gassy is distention of the stomach but no small bowel or colonic distentio n. No pathological soft tissue mass or calcification can be observed. The bony structures are grossl y intact. Degenerative spondylosis is seen in the upper lumbar spine. There is diffuse osteopeniaIMPR ESSIONNo evidence for acute abdominal pathology identified. The gastric air bubble is mildly distende d with a air.Electronically signed by: JOEL COYLE (Feb 27, 2020 15:39:40)
[2020-02-27] MEDS: HALDOL INJ IVP PRN (19:34)
[2020-02-27] MEDS: ATIVAN TAB 0.5 MG PO SCH (22:29)
[2020-02-27] MEDS: NS 1000 ML 1,000 ML IV SCH (22:29)
[2020-02-28] MEDS: NORCO 5/325 MG TAB PO PRN ×2 (00:18→21:10)
[2020-02-28] MEDS: RESTORIL CAP 15 MG PO PRN ×2 (00:19→21:11)
[2020-02-28] MEDS: DUONEB 0.5 MG/3 MG (3 mL) NEB SCH ×6 (00:44→21:40)
[2020-02-28 04:28] LABS: ABG BASE EXCESS 8.9 mmol/L (-2.0-2.0)
[2020-02-28 04:29] LABS: ABG ALLEN TEST POS; ABG HCO3 33.5 mmol/L (22-26)
[2020-02-28] MEDS: SOLU-Medrol 40 MG VIAL IVP SCH ×3 (05:06→21:10)
[2020-02-28 05:36] LABS: BASOPHILS % (AUTO) 0.5 % (0.2-1.0); HEMOGLOBIN 11.4 g/dL (12.0-16.0); LYMPHOCYTES # (AUTO) 0.2 X10^3/uL (1.3-2.9); LYMPHOCYTES % (AUTO) 3.5 % (21.0-51.0); MEAN CORPUSCULAR HEMOGLOBIN 28.1 pg (27.0-34.0); MEAN CORPUSCULAR HGB CONC 31.8 g/dL (33.0-35.0); MEAN CORPUSCULAR VOLUME 88.5 fL (80.0-100.0); MEAN PLATELET VOLUME 9.7 fL (7.4-11.0); MONOCYTES # (AUTO) 0.7 x10^3/uL (0.3-0.8); MONOCYTES % (AUTO) 9.7 % (0.0-13.0); NEUTROPHILS # (AUTO) 5.8 x10^3/uL (2.2-4.8); NEUTROPHILS % (AUTO) 86.3 % (42.0-75.0); PLATELET COUNT 253 X10^3/uL (150.0-450.0); RED BLOOD COUNT 4.07 X10^6/uL (3.5-5.4); RED CELL DISTRIBUTION WIDTH 14.9 % (11.6-16.5); WHITE BLOOD COUNT 6.8 X10^3/uL (3.6-10.0)
[2020-02-28 05:47] LABS: ALBUMIN 2.1 g/dL (3.4-5.0); CALCIUM 9.7 mg/dL (8.5-10.1); CARBON DIOXIDE 31.8 mmol/L (21-32); COR CA(FOR HYPOALB) 11.2 mg/dL (8.5-10.1); CREATININE 1.32 mg/dL (0.55-1.02); TOTAL PROTEIN 5.6 g/dL (6.4-8.2)
[2020-02-28] MEDS: HALDOL INJ IVP PRN (06:45)
[2020-02-28] MEDS: PULMICORT NEB TX 0.5 MG NEB SCH ×2 (08:45→21:40)
[2020-02-28] MEDS: LEVAQUIN PREMIX IV 250 MG 250 MG/50 ML BAG IV SCH (10:22)
[2020-02-28] MEDS: K-DUR TAB 20 MEQ PO SCH ×2 (10:23→11:05)
[2020-02-28] MEDS: PROTONIX INJ 40 MG VIAL IVP SCH ×2 (10:24→21:08)
[2020-02-28] MEDS: SYNTHROID 150 mcg TAB PO SCH (10:25)
[2020-02-28] MEDS: PLAQUENIL PO SCH (10:25)
[2020-02-28] MEDS: ROBITUSSIN DM PO SCH ×4 (10:25→21:10)
[2020-02-28] MEDS: LOVENOX INJ 40 MG SYR SC SCH (10:26)
[2020-02-28] MEDS: LOPRESSOR TAB 50 MG PO SCH ×2 (10:26→21:06)
[2020-02-28] MEDS: COZAAR PO SCH (10:27)
[2020-02-28] MEDS: ZITHROMAX INJ 500 MG VIAL 500 MG in D5W 250 ML IV 250 ML IV SCH (10:30)
[2020-02-28] MEDS: ATIVAN TAB 0.5 MG PO SCH ×2 (10:30→21:06)
[2020-02-28] MEDS: LASIX IVP SCH ×3 (10:36→17:43)
[2020-02-28] MEDS: PERPHENAZINE 2 MG PO SCH ×2 (10:36→21:00)
--- NOTE | 2020-02-28 10:36 | RAD ---
HISTORYcovid pneumoniaSTUDYAP [id number]/23/2020FINDINGSNormal heart size and configuration. Interval improvement in bilateral infiltrates. Slight residual parenchymal density remains in the perihilar areas. No new abnormality demonstrated.IMPRESSIONInterval decrease in bilateral infiltrates with no new abnormality identified.Electronically signed by: SANTIAGO BELL (Feb 28, 2020 10:35:03)
[2020-02-28] MEDS: ELAVIL PO SCH ×2 (10:51→21:06)
[2020-02-28] MEDS ORDERED: K-DUR TAB 20 MEQ PO PRN (11:07)
[2020-02-28] MEDS ORDERED: POTASSIUM CHL 40 MEQ/NS 0.45% 500 ML IV PRN (11:07)
[2020-02-28] MEDS ORDERED: POTASSIUM CHL 60 MEQ/NS 0.45% 500 ML IV PRN (11:07)
[2020-02-28] MEDS ORDERED: MICRO K EXTEN CAP 10 MEQ PO PRN (11:07)
[2020-02-28] MEDS ORDERED: KLOR-CON PO PRN (11:07)
[2020-02-28] MEDS ORDERED: POTASSIUM CHLORIDE LIQ 20 MEQ UDC PO PRN (11:07)
[2020-02-28] MEDS: K-RIDER 10 MEQ/NS 100 ML 10 MEQ/100 ML BAG IV PRN ×2 (16:25→18:39)
[2020-02-28] MEDS ORDERED: NS + KCL 20 MEQ/L 1,000 ML IV SCH (18:00)
[2020-02-29] MEDS: DUONEB 0.5 MG/3 MG (3 mL) NEB SCH ×6 (01:24→22:00)
[2020-02-29] MEDS ORDERED: HALDOL INJ ONE (05:13)
[2020-02-29] MEDS: HALDOL INJ IVP PRN (05:49)
[2020-02-29] MEDS: SOLU-Medrol 40 MG VIAL IVP SCH ×3 (05:50→21:11)
[2020-02-29 05:57] LABS: ABG BASE EXCESS 8.1 mmol/L (-2.0-2.0)
[2020-02-29 05:58] LABS: ABG ALLEN TEST POS; ABG HCO3 32.8 mmol/L (22-26)
[2020-02-29 06:18] LABS: BASOPHILS % (AUTO) 0.2 % (0.2-1.0); HEMATOCRIT 37.8 % (36.0-47.0); HEMOGLOBIN 12.1 g/dL (12.0-16.0); LYMPHOCYTES # (AUTO) 0.2 X10^3/uL (1.3-2.9); LYMPHOCYTES % (AUTO) 1.9 % (21.0-51.0); MEAN CORPUSCULAR HEMOGLOBIN 28.3 pg (27.0-34.0); MEAN CORPUSCULAR HGB CONC 32.1 g/dL (33.0-35.0); MEAN CORPUSCULAR VOLUME 88.3 fL (80.0-100.0); MEAN PLATELET VOLUME 9.6 fL (7.4-11.0); MONOCYTES # (AUTO) 1.4 x10^3/uL (0.3-0.8); MONOCYTES % (AUTO) 12.8 % (0.0-13.0); NEUTROPHILS # (AUTO) 9.3 x10^3/uL (2.2-4.8); NEUTROPHILS % (AUTO) 85.1 % (42.0-75.0); PLATELET COUNT 314 X10^3/uL (150.0-450.0); RED BLOOD COUNT 4.28 X10^6/uL (3.5-5.4); RED CELL DISTRIBUTION WIDTH 15.3 % (11.6-16.5); WHITE BLOOD COUNT 10.9 X10^3/uL (3.6-10.0)
[2020-02-29 06:22] LABS: ALBUMIN 2.3 g/dL (3.4-5.0); CALCIUM 9.8 mg/dL (8.5-10.1); CARBON DIOXIDE 31.2 mmol/L (21-32); COR CA(FOR HYPOALB) 11.2 mg/dL (8.5-10.1); CREATININE 1.23 mg/dL (0.55-1.02)
[2020-02-29] MEDS: PULMICORT NEB TX 0.5 MG NEB SCH ×2 (09:25→22:00)
[2020-02-29] MEDS: SYNTHROID 150 mcg TAB PO SCH (09:40)
[2020-02-29] MEDS: K-DUR TAB 20 MEQ PO SCH (09:40)
[2020-02-29] MEDS: LOPRESSOR TAB 50 MG PO SCH ×2 (09:41→21:11)
[2020-02-29] MEDS: COZAAR PO SCH (09:41)
[2020-02-29] MEDS: PROTONIX INJ 40 MG VIAL IVP SCH ×2 (09:44→21:11)
[2020-02-29] MEDS: PLAQUENIL PO SCH (09:44)
[2020-02-29] MEDS: MILK OF MAGNESIA PO SCH (09:44)
[2020-02-29] MEDS: ROBITUSSIN DM PO SCH ×4 (09:45→21:12)
[2020-02-29] MEDS: LEVAQUIN PREMIX IV 250 MG 250 MG/50 ML BAG IV SCH (09:45)
[2020-02-29] MEDS: ATIVAN TAB 0.5 MG PO SCH ×2 (09:46→21:13)
[2020-02-29] MEDS: ZITHROMAX INJ 500 MG VIAL 500 MG in D5W 250 ML IV 250 ML IV SCH (09:46)
[2020-02-29] MEDS: LOVENOX INJ 40 MG SYR SC SCH (09:48)
[2020-02-29] MEDS: ELAVIL PO SCH ×2 (09:58→21:13)
[2020-02-29] MEDS: PERPHENAZINE 2 MG PO SCH ×2 (09:59→21:11)
[2020-02-29] MEDS: LASIX IVP SCH ×2 (09:59→18:17)
--- NOTE | 2020-02-29 11:29 | PCM.PROG ---
Progress Note Progress Note for Day of Date of Exam: 02/29/20 Subjective Subjective: Patient seen at bedside, no overnight events. Patient is currently on BiPAP, FiO2 decreased to 45% this morning, sats> 90%. Patient asleep during exam. Labs: WBC 10.9 Hgb 12.1 K: 3.4 BUN/Cr 50/1.23 ABG 7.47/45/76/32.8 CXR: improvement in bilateral infiltrates Urine Cx: E.coli Plan: continue to wean off Bipap as tolerated, keep sats > 90%. Continue solumedrol and Levaquin. Continue potassium replacement. Will DC IVF . Monitor AM labs. Past Medical Family Social History Past Med/Fam/Surg Hx: No changes since H&P Allergies: Allergies Penicillins Allergy (Verified 02/21/20 11:09) Review of Systems ROS: No change since H&P Vital Signs and I&O's Vital Signs: Temperature 98.8 F Pulse Rate [Left Radial] 93 Pulse Rate 110 Respiratory Rate 32 Blood Pressure [Left Arm] 161/68 Blood Pressure 168/72 O2 Sat by Pulse Oximetry 95 Intake and Output: Intake & Output 02/26/20 02/27/20 02/28/20 02/29/20 23:59 23:59 23:59 23:59 Intake Total 1335 / 1335 1274 / 1274 957 / 957 160 / 160 Output Total 2700 / 2700 2300 / 2300 1750 / 1750 175 / 175 Balance -1365 / -1365 -1026 / -1026 -793 / -793 -15 / -15 Physical Exam Oriented: Unable to test Eyes: Normal Ear: Normal Nose: Normal Throat: Normal Respiratory: Generalized and Diminished Cardiovascular: Normal and Edema Auscultation: Bowel Sounds: Normal Tenderness: Normal Skin: Decreased Turgur Musculoskeletal: Normal Psychiatric: Normal Mood Description: Calm Affect: Normal Speech Pattern: Artificially Ventilated (on BiPAP ) Laboratory and Diagnostics Result Diagrams: 02/29/20 04:54 02/29/20 04:54 Labs: 02/21/20 13:00 Blood Blood Culture - Final 02/21/20 12:50 Blood Blood Culture - Final 02/21/20 17:41 Sputum - Expectorated Sputum Sputum Culture - Final 02/21/20 17:41 Sputum - Expectorated Sputum - Final 02/24/20 23:50 Blood Blood Culture - Preliminary 02/24/20 23:44 Blood Blood Culture - Preliminary 02/21/20 14:00 Urine,Catheterized Urine Culture - Final Escherichia Coli Laboratory WBC 10.9 X10^3/uL (3.6-10.0) H 02/29/20 04:54 RBC 4.28 X10^6/uL (3.5-5.4) 02/29/20 04:54 Hgb 12.1 g/dL (12.0-16.0) 02/29/20 04:54 Hct 37.8 % (36.0-47.0) 02/29/20 04:54 MCV 88.3 fL (80.0-100.0) 02/29/20 04:54 MCH 28.3 pg (27.0-34.0) 02/29/20 04:54 MCHC 32.1 g/dL (33.0-35.0) L 02/29/20 04:54 RDW 15.3 % (11.6-16.5) 02/29/20 04:54 Plt Count 314 X10^3/uL (150.0-450.0) 02/29/20 04:54 Plt Count Comment Adequate (ADEQUATE) 02/23/20 06:11 MPV 9.6 fL (7.4-11.0) 02/29/20 04:54 Neut % (Auto) 85.1 % (42.0-75.0) H 02/29/20 04:54 Lymph % (Auto) 1.9 % (21.0-51.0) L 02/29/20 04:54 [place] % (Auto) 12.8 % (0.0-13.0) 02/29/20 04:54 Eos % (Auto) 0.0 % (0.9-2.9) L 02/29/20 04:54 Baso % (Auto) 0.2 % (0.2-1.0) 02/29/20 04:54 Neut # (Auto) 9.3 x10^3/uL (2.2-4.8) H 02/29/20 04:54 Lymph # (Auto) 0.2 X10^3/uL (1.3-2.9) L 02/29/20 04:54 [place] # (Auto) 1.4 x10^3/uL (0.3-0.8) H 02/29/20 04:54 Eos # (Auto) 0.0 x10^3/uL (0.0-0.2) 02/29/20 04:54 Baso # (Auto) 0.0 X10^3/uL (0.0-0.1) 02/29/20 04:54 Absolute Nucleated RBC 0.0 /100WBC 02/29/20 04:54 Total Counted 100 02/23/20 06:11 Neutrophils % (Manual) 60 % (39-76) 02/23/20 06:11 Band Neutrophils % 1 % (0-10) 02/23/20 06:11 Lymphocytes % (Manual) 19 % (13-43) 02/23/20 06:11 Monocytes % (Manual) 20 % (4-9) H 02/23/20 06:11 Eosinophils % (Manual) 2 % (0-6) 02/21/20 11:32 Plt Morphology Comment Normal (NORMAL) 02/23/20 06:11 RBC Morphology Normal (NORMAL) 02/23/20 06:11 Sample Site Rr 02/29/20 06:00 ABG pH 7.470 (7.35-7.45) H 02/29/20 06:00 ABG pCO2 45.0 mmHg (35.0-45.0) 02/29/20 06:00 ABG pO2 76.0 mmHg (80.0-100.0) L 02/29/20 06:00 ABG HCO3 32.8 mmol/L (22-26) H* 02/29/20 06:00 ABG O2 Saturation 96.0 % (90-100) 02/29/20 06:00 ABG Base Excess 8.1 mmol/L (-2.0-2.0) H 02/29/20 06:00 Jay Test Pos 02/29/20 06:00 A-a Gradient 224.0 mmHg 02/29/20 06:00 FiO2 50.0 02/29/20 06:00 Blood Gas Comments Berny well sw 02/29/20 06:00 Sodium 147 mmol/L (136-145) H 02/29/20 04:54 Corrected Sodium 150 mmol/L (136-145) H 02/29/20 04:54 Potassium 3.4 mmol/L (3.5-5.1) L 02/29/20 04:54 Chloride 107 mmol/L (98-107) 02/29/20 04:54 Carbon Dioxide 31.2 mmol/L (21-32) 02/29/20 04:54 BUN 50 mg/dL (7-18) H 02/29/20 04:54 Creatinine 1.23 mg/dL (0.55-1.02) H 02/29/20 04:54 Est GFR (MDRD) Af Amer 54 (>60) L 02/29/20 04:54 Est GFR (MDRD) Non-Af 44 (>60) L 02/29/20 04:54 Glucose 242 mg/dL (65-99) H 02/29/20 04:54 Lactic Acid 1.9 mmol/L (0.4-2.0) 02/21/20 15:05 Calcium 9.8 mg/dL (8.5-10.1) 02/29/20 04:54 Corrected Calcium 11.2 mg/dL (8.5-10.1) H 02/29/20 04:54 Magnesium 2.4 mg/dL (1.7-2.9) 02/28/20 04:42 Ferritin 141 ng/mL (8-252) 02/27/20 04:35 Total Bilirubin 0.40 mg/dL (0.2-1.0) 02/29/20 04:54 AST 14 Units/L (15-37) L 02/29/20 04:54 ALT 18 Units/L (12-78) 02/29/20 04:54 Alkaline Phosphatase 97 Units/L (46-116) 02/29/20 04:54 Troponin I < 0.02 ng/mL (0-1.5) 02/21/20 11:32 C-Reactive Protein 122.30 mg/L (0-3.0) H 02/27/20 04:35 B-Natriuretic Peptide 137 pg/mL (0-79) H 02/21/20 11:32 Total Protein 6.0 g/dL (6.4-8.2) L 02/29/20 04:54 Albumin 2.3 g/dL (3.4-5.0) L 02/29/20 04:54 Globulin 3.7 g/dL (2.5-4.5) 02/29/20 04:54 Albumin/Globulin Ratio 0.6 Ratio (1.1-2.1) L 02/29/20 04:54 Specimen Type Catherized urine 02/26/20 12:15 Urine Color Yellow (YELLOW) 02/26/20 12:15 Urine Appearance Clear (CLEAR) 02/26/20 12:15 Urine pH 6.0 (5.0 - 8.0) 02/26/20 12:15 Ur Specific [place] 1.015 (1.000-1.030) 02/26/20 12:15 Urine Protein Negative (NEGATIVE) 02/26/20 12:15 Urine Glucose (UA) Negative (NEGATIVE) 02/26/20 12:15 Urine Ketones Negative (NEGATIVE) 02/26/20 12:15 Urine Occult Blood Negative (NEGATIVE) 02/26/20 12:15 Urine Nitrite Negative (NEGATIVE) 02/26/20 12:15 Urine Bilirubin Negative (NEGATIVE) 02/26/20 12:15 Urine Urobilinogen Normal (NORMAL) 02/26/20 12:15 Ur Leukocyte Esterase Negative (NEGATIVE) 02/26/20 12:15 Urine RBC 3-5 /HPF (0-3) A 02/21/20 14:00 Urine WBC 30-50 /HPF (0-5) A 02/21/20 14:00 Ur Squamous Epith Cells Few /HPF (NEGATIVE) 02/21/20 14:00 Urine Bacteria 2+ /HPF (NEGATIVE) 02/21/20 14:00 Ur Culture Indicated? Yes/culture set up 02/21/20 14:00 Influenza Type A (PCR) Negative (NEGATIVE) 02/21/20 14:18 Influenza Type B (PCR) Negative (NEGATIVE) 02/21/20 14:18 SARS CoV-2 RNA Rapid HEATHER Positive (NEGATIVE) A 02/21/20 14:18 Plan (1) Pneumonia due to COVID-19 virus: Status: Acute (2) Acute respiratory failure with hypoxia: Status: Acute (3) Acute renal failure: Status: Acute Qualifiers: Acute renal failure type: unspecified Qualified Code(s): N17.9 - Acute kidney failure, unspecified (4) Afib: Status: Acute Qualifiers: Atrial fibrillation type: unspecified Qualified Code(s): I48.91 - Unspecified atrial fibrillation (5) Dementia: Status: Acute Qualifiers: Alzheimer's disease onset: unspecified onset Dementia behavioral disturbance: without behavioral disturbance Dementia type: Alzheimer's disease Qualified Code(s): G30.9 - Alzheimer's disease, unspecified; F02.80 - Dementia in other diseases classified elsewhere without behavioral disturbance (6) Weakness: Status: Acute (7) Hypokalemia: Status: Acute (8) E. coli UTI: Status: Acute
[2020-03-01] MEDS: DUONEB 0.5 MG/3 MG (3 mL) NEB SCH ×6 (01:30→21:10)
[2020-03-01] MEDS: SOLU-Medrol 40 MG VIAL IVP SCH (05:26)
[2020-03-01 05:34] LABS: BASOPHILS % (AUTO) 0.1 % (0.2-1.0); HEMATOCRIT 39.7 % (36.0-47.0); HEMOGLOBIN 12.5 g/dL (12.0-16.0); LYMPHOCYTES # (AUTO) 0.2 X10^3/uL (1.3-2.9); LYMPHOCYTES % (AUTO) 1.8 % (21.0-51.0); MEAN CORPUSCULAR HEMOGLOBIN 27.8 pg (27.0-34.0); MEAN CORPUSCULAR HGB CONC 31.4 g/dL (33.0-35.0); MEAN CORPUSCULAR VOLUME 88.5 fL (80.0-100.0); MEAN PLATELET VOLUME 9.4 fL (7.4-11.0); MONOCYTES # (AUTO) 1.4 x10^3/uL (0.3-0.8); MONOCYTES % (AUTO) 11.1 % (0.0-13.0); NEUTROPHILS # (AUTO) 11.1 x10^3/uL (2.2-4.8); PLATELET COUNT 293 X10^3/uL (150.0-450.0); RED BLOOD COUNT 4.49 X10^6/uL (3.5-5.4); RED CELL DISTRIBUTION WIDTH 15.6 % (11.6-16.5); WHITE BLOOD COUNT 12.8 X10^3/uL (3.6-10.0)
[2020-03-01 06:03] LABS: ALBUMIN 2.4 g/dL (3.4-5.0); CALCIUM 10.1 mg/dL (8.5-10.1); CARBON DIOXIDE 33.6 mmol/L (21-32); COR CA(FOR HYPOALB) 11.4 mg/dL (8.5-10.1); CREATININE 1.41 mg/dL (0.55-1.02); TOTAL PROTEIN 6.2 g/dL (6.4-8.2)
[2020-03-01 06:03] LABS: ABG BASE EXCESS 11.5 mmol/L (-2.0-2.0)
[2020-03-01 06:06] LABS: ABG ALLEN TEST POS; ABG HCO3 35.9 mmol/L (22-26)
--- NOTE | 2020-03-01 06:39 | RAD ---
HISTORYcovidSTUDYAP [id number]/24/2020FINDINGSThere is no change in appearance of heart, lungs or mediastinum. Ill-defined bilateral infiltrates remain. No complicating pneumothorax, new consolidation or pleural fluid identified.IMPRESSIONNo definite change identified since previous exam.Electronically signed by: SANTIAGO BELL (Mar 01, 2020 06:38:40)
[2020-03-01] MEDS: PULMICORT NEB TX 0.5 MG NEB SCH ×2 (09:11→21:10)
[2020-03-01] MEDS: LEVAQUIN PREMIX IV 250 MG 250 MG/50 ML BAG IV SCH (09:45)
[2020-03-01] MEDS: PROTONIX INJ 40 MG VIAL IVP SCH ×2 (09:46→21:26)
[2020-03-01] MEDS: ZITHROMAX INJ 500 MG VIAL 500 MG in D5W 250 ML IV 250 ML IV SCH (09:46)
[2020-03-01] MEDS: PERPHENAZINE 2 MG PO SCH ×3 (09:46→21:27)
[2020-03-01] MEDS: SYNTHROID 150 mcg TAB PO SCH (09:47)
[2020-03-01] MEDS: PLAQUENIL PO SCH (09:48)
[2020-03-01] MEDS: LOPRESSOR TAB 50 MG PO SCH ×3 (09:48→21:26)
[2020-03-01] MEDS: LOVENOX INJ 40 MG SYR SC SCH (09:49)
[2020-03-01] MEDS: K-DUR TAB 20 MEQ PO SCH (09:49)
[2020-03-01] MEDS: MILK OF MAGNESIA PO SCH ×2 (09:49)
[2020-03-01] MEDS: COZAAR PO SCH (09:51)
[2020-03-01] MEDS: ATIVAN TAB 0.5 MG PO SCH (11:12)
[2020-03-01] MEDS: ROBITUSSIN DM PO SCH ×4 (11:12→21:27)
[2020-03-01] MEDS: ELAVIL PO SCH ×2 (11:14→21:26)
[2020-03-01] MEDS: LASIX IVP SCH (11:14)
--- NOTE | 2020-03-01 13:09 | PCM.PROG ---
Progress Note Progress Note for Day of Date of Exam: 03/01/20 Subjective Subjective: Patient seen at bedside, no overnight events. Patient is currently on BiPAP, FiO2 40%. sats> 90%. Patient asleep during exam. Patient appears more drowsy compared to yesterday. She did open her eyes with sternal rub. She did not get her oral medications this morning. Labs: WBC 12.8 Hgb 12.5 K: 3.5 BUN/Cr 56/1.41 Na: 155 Cl 110 ABG 7.51/45/65/35.9 CXR:no change from yesterday Urine Cx: E.coli Plan: will DC Lasix, start gentle hydration with 1/2 NS for hypernatremia. Patient was on a lot of sedating medications, DC hydrocodone-apap, Haldol and Ativan for now. Wean BiPAP as tolerated, switch to HHFNC as tolerated to keep sats > 90%. Continue levaquin and solumedrol. Continue duonebs and pulmicort. Monitor AM labs. Past Medical Family Social History Past Med/Fam/Surg Hx: No changes since H&P Allergies: Allergies Penicillins Allergy (Verified 02/21/20 11:09) Review of Systems ROS: No change since H&P Vital Signs and I&O's Vital Signs: Temperature 98.3 F Pulse Rate [Left Radial] 93 Pulse Rate 96 Respiratory Rate 23 Blood Pressure [Left Arm] 161/68 Blood Pressure 147/64 O2 Sat by Pulse Oximetry 95 Intake and Output: Intake & Output 02/27/20 02/28/20 02/29/20 03/01/20 23:59 23:59 23:59 23:59 Intake Total 1274 / 1274 957 / 957 720 / 720 220 / 220 Output Total 2300 / 2300 1750 / 1750 1125 / 1125 Balance -1026 / -1026 -793 / -793 -405 / -405 220 / 220 Physical Exam Oriented: Unable to test Eyes: Normal Ear: Normal Nose: Normal Throat: Normal Respiratory: Generalized and Diminished Cardiovascular: Normal Auscultation: Bowel Sounds: Normal Tenderness: Normal Skin: Decreased Turgur Musculoskeletal: Normal Psychiatric: Normal Mood Description: Calm Affect: Normal Speech Pattern: Artificially Ventilated (on BiPAP ) Laboratory and Diagnostics Result Diagrams: 03/01/20 04:55 03/01/20 04:55 Labs: 02/24/20 23:50 Blood Blood Culture - Final 02/24/20 23:44 Blood Blood Culture - Final 02/21/20 13:00 Blood Blood Culture - Final 02/21/20 12:50 Blood Blood Culture - Final 02/21/20 17:41 Sputum - Expectorated Sputum Sputum Culture - Final 02/21/20 17:41 Sputum - Expectorated Sputum - Final 02/21/20 14:00 Urine,Catheterized Urine Culture - Final Escherichia Coli Laboratory WBC 12.8 X10^3/uL (3.6-10.0) H 03/01/20 04:55 RBC 4.49 X10^6/uL (3.5-5.4) 03/01/20 04:55 Hgb 12.5 g/dL (12.0-16.0) 03/01/20 04:55 Hct 39.7 % (36.0-47.0) 03/01/20 04:55 MCV 88.5 fL (80.0-100.0) 03/01/20 04:55 MCH 27.8 pg (27.0-34.0) 03/01/20 04:55 MCHC 31.4 g/dL (33.0-35.0) L 03/01/20 04:55 RDW 15.6 % (11.6-16.5) 03/01/20 04:55 Plt Count 293 X10^3/uL (150.0-450.0) 03/01/20 04:55 Plt Count Comment Adequate (ADEQUATE) 02/23/20 06:11 MPV 9.4 fL (7.4-11.0) 03/01/20 04:55 Neut % (Auto) 87.0 % (42.0-75.0) H 03/01/20 04:55 Lymph % (Auto) 1.8 % (21.0-51.0) L 03/01/20 04:55 [place] % (Auto) 11.1 % (0.0-13.0) 03/01/20 04:55 Eos % (Auto) 0.0 % (0.9-2.9) L 03/01/20 04:55 Baso % (Auto) 0.1 % (0.2-1.0) L 03/01/20 04:55 Neut # (Auto) 11.1 x10^3/uL (2.2-4.8) H 03/01/20 04:55 Lymph # (Auto) 0.2 X10^3/uL (1.3-2.9) L 03/01/20 04:55 [place] # (Auto) 1.4 x10^3/uL (0.3-0.8) H 03/01/20 04:55 Eos # (Auto) 0.0 x10^3/uL (0.0-0.2) 03/01/20 04:55 Baso # (Auto) 0.0 X10^3/uL (0.0-0.1) 03/01/20 04:55 Absolute Nucleated RBC 0.0 /100WBC 03/01/20 04:55 Total Counted 100 02/23/20 06:11 Neutrophils % (Manual) 60 % (39-76) 02/23/20 06:11 Band Neutrophils % 1 % (0-10) 02/23/20 06:11 Lymphocytes % (Manual) 19 % (13-43) 02/23/20 06:11 Monocytes % (Manual) 20 % (4-9) H 02/23/20 06:11 Eosinophils % (Manual) 2 % (0-6) 02/21/20 11:32 Plt Morphology Comment Normal (NORMAL) 02/23/20 06:11 RBC Morphology Normal (NORMAL) 02/23/20 06:11 Sample Site Rrad 03/01/20 06:02 ABG pH 7.510 (7.35-7.45) H 03/01/20 06:02 ABG pCO2 45.0 mmHg (35.0-45.0) 03/01/20 06:02 ABG pO2 65.0 mmHg (80.0-100.0) L 03/01/20 06:02 ABG HCO3 35.9 mmol/L (22-26) H* 03/01/20 06:02 ABG O2 Saturation 94.0 % (90-100) 03/01/20 06:02 ABG Base Excess 11.5 mmol/L (-2.0-2.0) H 03/01/20 06:02 Jay Test Pos 03/01/20 06:02 A-a Gradient 164.0 mmHg 03/01/20 06:02 FiO2 40.0 03/01/20 06:02 Blood Gas Comments Berny abg well-mtf 03/01/20 06:02 Sodium 151 mmol/L (136-145) H* 03/01/20 04:55 Corrected Sodium 155 mmol/L (136-145) H 03/01/20 04:55 Potassium 3.5 mmol/L (3.5-5.1) 03/01/20 04:55 Chloride 110 mmol/L (98-107) H 03/01/20 04:55 Carbon Dioxide 33.6 mmol/L (21-32) H 03/01/20 04:55 BUN 56 mg/dL (7-18) H 03/01/20 04:55 Creatinine 1.41 mg/dL (0.55-1.02) H 03/01/20 04:55 Est GFR (MDRD) Af Amer 46 (>60) L 03/01/20 04:55 Est GFR (MDRD) Non-Af 38 (>60) L 03/01/20 04:55 Glucose 254 mg/dL (65-99) H 03/01/20 04:55 Lactic Acid 1.9 mmol/L (0.4-2.0) 02/21/20 15:05 Calcium 10.1 mg/dL (8.5-10.1) 03/01/20 04:55 Corrected Calcium 11.4 mg/dL (8.5-10.1) H 03/01/20 04:55 Magnesium 2.4 mg/dL (1.7-2.9) 02/28/20 04:42 Ferritin 141 ng/mL (8-252) 02/27/20 04:35 Total Bilirubin 0.40 mg/dL (0.2-1.0) 03/01/20 04:55 AST 14 Units/L (15-37) L 03/01/20 04:55 ALT 19 Units/L (12-78) 03/01/20 04:55 Alkaline Phosphatase 94 Units/L (46-116) 03/01/20 04:55 Troponin I < 0.02 ng/mL (0-1.5) 02/21/20 11:32 C-Reactive Protein 122.30 mg/L (0-3.0) H 02/27/20 04:35 B-Natriuretic Peptide 137 pg/mL (0-79) H 02/21/20 11:32 Total Protein 6.2 g/dL (6.4-8.2) L 03/01/20 04:55 Albumin 2.4 g/dL (3.4-5.0) L 03/01/20 04:55 Globulin 3.8 g/dL (2.5-4.5) 03/01/20 04:55 Albumin/Globulin Ratio 0.6 Ratio (1.1-2.1) L 03/01/20 04:55 Specimen Type Catherized urine 02/26/20 12:15 Urine Color Yellow (YELLOW) 02/26/20 12:15 Urine Appearance Clear (CLEAR) 02/26/20 12:15 Urine pH 6.0 (5.0 - 8.0) 02/26/20 12:15 Ur Specific [place] 1.015 (1.000-1.030) 02/26/20 12:15 Urine Protein Negative (NEGATIVE) 02/26/20 12:15 Urine Glucose (UA) Negative (NEGATIVE) 02/26/20 12:15 Urine Ketones Negative (NEGATIVE) 02/26/20 12:15 Urine Occult Blood Negative (NEGATIVE) 02/26/20 12:15 Urine Nitrite Negative (NEGATIVE) 02/26/20 12:15 Urine Bilirubin Negative (NEGATIVE) 02/26/20 12:15 Urine Urobilinogen Normal (NORMAL) 02/26/20 12:15 Ur Leukocyte Esterase Negative (NEGATIVE) 02/26/20 12:15 Urine RBC 3-5 /HPF (0-3) A 02/21/20 14:00 Urine WBC 30-50 /HPF (0-5) A 02/21/20 14:00 Ur Squamous Epith Cells Few /HPF (NEGATIVE) 02/21/20 14:00 Urine Bacteria 2+ /HPF (NEGATIVE) 02/21/20 14:00 Ur Culture Indicated? Yes/culture set up 02/21/20 14:00 Influenza Type A (PCR) Negative (NEGATIVE) 02/21/20 14:18 Influenza Type B (PCR) Negative (NEGATIVE) 02/21/20 14:18 SARS CoV-2 RNA Rapid HEATHER Positive (NEGATIVE) A 02/21/20 14:18 Plan (1) Pneumonia due to COVID-19 virus: Status: Acute (2) Acute respiratory failure with hypoxia: Status: Acute (3) Acute renal failure: Status: Acute Qualifiers: Acute renal failure type: unspecified Qualified Code(s): N17.9 - Acute kidney failure, unspecified (4) Afib: Status: Acute Qualifiers: Atrial fibrillation type: unspecified Qualified Code(s): I48.91 - Unspecified atrial fibrillation (5) Dementia: Status: Acute Qualifiers: Alzheimer's disease onset: unspecified onset Dementia behavioral disturbance: without behavioral disturbance Dementia type: Alzheimer's disease Qualified Code(s): G30.9 - Alzheimer's disease, unspecified; F02.80 - Dementia in other diseases classified elsewhere without behavioral disturbance (6) Weakness: Status: Acute (7) Hypokalemia: Status: Acute (8) E. coli UTI: Status: Acute
[2020-03-01] MEDS: NS 1/2 1000 ML IV 1,000 ML IV SCH (19:05)
[2020-03-01] MEDS ORDERED: NS 1/2 1000 ML IV 1,000 ML IV ONE (19:05)
[2020-03-01] MEDS: SOLU-Medrol 125 MG VIAL IVP SCH (21:26)
[2020-03-01] MEDS: PERCOCET TAB 5/325 MG PO PRN (21:50)
[2020-03-02] MEDS: RESTORIL CAP 15 MG PO PRN (01:00)
[2020-03-02] MEDS: DUONEB 0.5 MG/3 MG (3 mL) NEB SCH ×2 (01:09→01:10)
[2020-03-02] MEDS: NS 1/2 1000 ML IV 1,000 ML IV SCH ×2 (04:22→16:38)
[2020-03-02] MEDS ORDERED: XOPENEX 1.25 MG/3 ML NEBULE NEB ONE (04:29)
[2020-03-02] MEDS: XOPENEX 1.25 MG/3 ML NEBULE NEB SCH ×3 (05:03→21:00)
[2020-03-02 05:31] LABS: BASOPHILS % (AUTO) 0.2 % (0.2-1.0); HEMATOCRIT 40.5 % (36.0-47.0); LYMPHOCYTES # (AUTO) 0.4 X10^3/uL (1.3-2.9); LYMPHOCYTES % (AUTO) 2.4 % (21.0-51.0); MEAN CORPUSCULAR HEMOGLOBIN 28.2 pg (27.0-34.0); MEAN CORPUSCULAR HGB CONC 32.1 g/dL (33.0-35.0); MEAN CORPUSCULAR VOLUME 87.8 fL (80.0-100.0); MEAN PLATELET VOLUME 9.3 fL (7.4-11.0); MONOCYTES # (AUTO) 1.1 x10^3/uL (0.3-0.8); MONOCYTES % (AUTO) 7.1 % (0.0-13.0); NEUTROPHILS # (AUTO) 14.1 x10^3/uL (2.2-4.8); NEUTROPHILS % (AUTO) 90.3 % (42.0-75.0); PLATELET COUNT 272 X10^3/uL (150.0-450.0); RED BLOOD COUNT 4.62 X10^6/uL (3.5-5.4); RED CELL DISTRIBUTION WIDTH 15.4 % (11.6-16.5); WHITE BLOOD COUNT 15.6 X10^3/uL (3.6-10.0)
[2020-03-02 05:44] LABS: ALBUMIN 2.3 g/dL (3.4-5.0); CALCIUM 9.9 mg/dL (8.5-10.1); CARBON DIOXIDE 32.3 mmol/L (21-32); COR CA(FOR HYPOALB) 11.3 mg/dL (8.5-10.1); CREATININE 1.78 mg/dL (0.55-1.02); TOTAL PROTEIN 5.8 g/dL (6.4-8.2)
[2020-03-02 06:49] LABS: PLATELET MORPHOLOGY COMMENT NORMAL (NORMAL)
[2020-03-02] MEDS: PULMICORT NEB TX 0.5 MG NEB SCH ×2 (09:10→21:00)
[2020-03-02] MEDS: SOLU-Medrol 125 MG VIAL IVP SCH ×2 (10:13→10:14)
[2020-03-02] MEDS: LOVENOX INJ 40 MG SYR SC SCH (10:17)
[2020-03-02] MEDS: LEVAQUIN PREMIX IV 250 MG 250 MG/50 ML BAG IV SCH (10:17)
[2020-03-02] MEDS: SYNTHROID 150 mcg TAB PO SCH ×2 (10:18→10:34)
[2020-03-02] MEDS: COZAAR PO SCH ×2 (10:20→10:23)
[2020-03-02] MEDS: K-DUR TAB 20 MEQ PO SCH ×2 (10:20→10:26)
[2020-03-02] MEDS: MILK OF MAGNESIA PO SCH ×4 (10:21→10:32)
[2020-03-02] MEDS: PLAQUENIL PO SCH ×2 (10:22→10:27)
[2020-03-02] MEDS: ROBITUSSIN DM PO SCH ×2 (10:23→10:33)
[2020-03-02] MEDS: ELAVIL PO SCH (10:26)
[2020-03-02] MEDS: LOPRESSOR TAB 50 MG PO SCH ×3 (10:27→21:37)
[2020-03-02] MEDS: PERPHENAZINE 2 MG PO SCH (10:33)
[2020-03-02] MEDS: SYNTHROID INJ 100 mcg VIAL IVP SCH (10:50)
[2020-03-02] MEDS: LOPRESSOR INJ 5 MG AMP IVP PRN ×2 (11:02→18:27)
[2020-03-02] MEDS: PROTONIX INJ 40 MG VIAL IVP SCH (11:15)
--- NOTE | 2020-03-02 12:58 | PCM.PROG ---
Progress Note Progress Note for Day of Date of Exam: 03/02/20 Subjective Subjective: Patient seen at bedside, no overnight events. Patient is currently on 4L NC , sats> 90%. Patient asleep during exam. Patient does open her eyes. She did not take some of her oral medications yesterday due to being too sleepy. She did take some last night but she was not able to swallow them properly. Labs: WBC 15.6 Hgb 13 K: 4 BUN/Cr 71/1.78 Na: 156 Cl 113 Urine Cx: E.coli Plan: will continue IV 1/2 NS. Switch to IV medications. Patient did miss her metoprolol dose, will give IV metoprolol tartate 5 mg IV q12 prn. Speech evaluation. CXR ordered. Wean O2 as tolerated. Continue nasal cannula for now. Add SSI for hyperglycemia. Continue levaquin. Will taper solumedrol. Continue duonebs and pulmicort. Will restart lasix at 20 mg IV. Monitor AM labs. Past Medical Family Social History Past Med/Fam/Surg Hx: No changes since H&P Allergies: Allergies Penicillins Allergy (Verified 02/21/20 11:09) Review of Systems ROS: No change since H&P Vital Signs and I&O's Vital Signs: Temperature 99.2 F Pulse Rate [Left Radial] 93 Pulse Rate 106 Respiratory Rate 43 Blood Pressure [Left Arm] 161/68 Blood Pressure 139/61 O2 Sat by Pulse Oximetry 96 Intake and Output: Intake & Output 02/28/20 02/29/20 03/01/20 03/02/20 23:59 23:59 23:59 23:59 Intake Total 957 / 957 720 / 720 971 / 971 378 / 378 Output Total 1750 / 1750 1125 / 1125 700 / 700 150 / 150 Balance -793 / -793 -405 / -405 271 / 271 228 / 228 Physical Exam Oriented: Unable to test Eyes: Normal Ear: Normal Nose: Normal Throat: Normal Respiratory: Generalized and Diminished Cardiovascular: Normal : Normal Auscultation: Bowel Sounds: Normal Tenderness: Normal Skin: Decreased Turgur Musculoskeletal: Normal Psychiatric: Normal Mood Description: Calm Affect: Normal Speech Pattern: Unclear Laboratory and Diagnostics Result Diagrams: 03/02/20 04:50 03/02/20 04:50 Labs: 02/24/20 23:50 Blood Blood Culture - Final 02/24/20 23:44 Blood Blood Culture - Final 02/21/20 13:00 Blood Blood Culture - Final 02/21/20 12:50 Blood Blood Culture - Final 02/21/20 17:41 Sputum - Expectorated Sputum Sputum Culture - Final 02/21/20 17:41 Sputum - Expectorated Sputum - Final 02/21/20 14:00 Urine,Catheterized Urine Culture - Final Escherichia Coli Laboratory WBC 15.6 X10^3/uL (3.6-10.0) H 03/02/20 04:50 RBC 4.62 X10^6/uL (3.5-5.4) 03/02/20 04:50 Hgb 13.0 g/dL (12.0-16.0) 03/02/20 04:50 Hct 40.5 % (36.0-47.0) 03/02/20 04:50 MCV 87.8 fL (80.0-100.0) 03/02/20 04:50 MCH 28.2 pg (27.0-34.0) 03/02/20 04:50 MCHC 32.1 g/dL (33.0-35.0) L 03/02/20 04:50 RDW 15.4 % (11.6-16.5) 03/02/20 04:50 Plt Count 272 X10^3/uL (150.0-450.0) 03/02/20 04:50 Plt Count Comment Adequate (ADEQUATE) 03/02/20 04:50 MPV 9.3 fL (7.4-11.0) 03/02/20 04:50 Neut % (Auto) 90.3 % (42.0-75.0) H 03/02/20 04:50 Lymph % (Auto) 2.4 % (21.0-51.0) L 03/02/20 04:50 [place] % (Auto) 7.1 % (0.0-13.0) 03/02/20 04:50 Eos % (Auto) 0.0 % (0.9-2.9) L 03/02/20 04:50 Baso % (Auto) 0.2 % (0.2-1.0) 03/02/20 04:50 Neut # (Auto) 14.1 x10^3/uL (2.2-4.8) H 03/02/20 04:50 Lymph # (Auto) 0.4 X10^3/uL (1.3-2.9) L 03/02/20 04:50 [place] # (Auto) 1.1 x10^3/uL (0.3-0.8) H 03/02/20 04:50 Eos # (Auto) 0.0 x10^3/uL (0.0-0.2) 03/02/20 04:50 Baso # (Auto) 0.0 X10^3/uL (0.0-0.1) 03/02/20 04:50 Absolute Nucleated RBC 0.0 /100WBC 03/02/20 04:50 Total Counted 100 03/02/20 04:50 Neutrophils % (Manual) 90 % (39-76) H 03/02/20 04:50 Band Neutrophils % 1 % (0-10) 02/23/20 06:11 Lymphocytes % (Manual) 5 % (13-43) L 03/02/20 04:50 Monocytes % (Manual) 5 % (4-9) 03/02/20 04:50 Eosinophils % (Manual) 2 % (0-6) 02/21/20 11:32 Plt Morphology Comment Normal (NORMAL) 03/02/20 04:50 RBC Morphology Normal (NORMAL) 03/02/20 04:50 Sample Site Rrad 03/01/20 06:02 ABG pH 7.510 (7.35-7.45) H 03/01/20 06:02 ABG pCO2 45.0 mmHg (35.0-45.0) 03/01/20 06:02 ABG pO2 65.0 mmHg (80.0-100.0) L 03/01/20 06:02 ABG HCO3 35.9 mmol/L (22-26) H* 03/01/20 06:02 ABG O2 Saturation 94.0 % (90-100) 03/01/20 06:02 ABG Base Excess 11.5 mmol/L (-2.0-2.0) H 03/01/20 06:02 Jay Test Pos 03/01/20 06:02 A-a Gradient 164.0 mmHg 03/01/20 06:02 FiO2 40.0 03/01/20 06:02 Blood Gas Comments Berny abg well-mtf 03/01/20 06:02 Sodium 152 mmol/L (136-145) H* 03/02/20 04:50 Corrected Sodium 156 mmol/L (136-145) H 03/02/20 04:50 Potassium 4.0 mmol/L (3.5-5.1) 03/02/20 04:50 Chloride 113 mmol/L (98-107) H 03/02/20 04:50 Carbon Dioxide 32.3 mmol/L (21-32) H 03/02/20 04:50 BUN 71 mg/dL (7-18) H 03/02/20 04:50 Creatinine 1.78 mg/dL (0.55-1.02) H 03/02/20 04:50 Est GFR (MDRD) Af Amer 35 (>60) L 03/02/20 04:50 Est GFR (MDRD) Non-Af 29 (>60) L 03/02/20 04:50 Glucose 272 mg/dL (65-99) H 03/02/20 04:50 POC Glucose (mg/dL) 192 mg/dL (65-99) H 03/02/20 12:24 Lactic Acid 1.9 mmol/L (0.4-2.0) 02/21/20 15:05 Calcium 9.9 mg/dL (8.5-10.1) 03/02/20 04:50 Corrected Calcium 11.3 mg/dL (8.5-10.1) H 03/02/20 04:50 Magnesium 2.4 mg/dL (1.7-2.9) 02/28/20 04:42 Ferritin 141 ng/mL (8-252) 02/27/20 04:35 Total Bilirubin 0.50 mg/dL (0.2-1.0) 03/02/20 04:50 AST 20 Units/L (15-37) 03/02/20 04:50 ALT 15 Units/L (12-78) 03/02/20 04:50 Alkaline Phosphatase 87 Units/L (46-116) 03/02/20 04:50 Troponin I < 0.02 ng/mL (0-1.5) 02/21/20 11:32 C-Reactive Protein 122.30 mg/L (0-3.0) H 02/27/20 04:35 B-Natriuretic Peptide 137 pg/mL (0-79) H 02/21/20 11:32 Total Protein 5.8 g/dL (6.4-8.2) L 03/02/20 04:50 Albumin 2.3 g/dL (3.4-5.0) L 03/02/20 04:50 Globulin 3.5 g/dL (2.5-4.5) 03/02/20 04:50 Albumin/Globulin Ratio 0.7 Ratio (1.1-2.1) L 03/02/20 04:50 Specimen Type Catherized urine 02/26/20 12:15 Urine Color Yellow (YELLOW) 02/26/20 12:15 Urine Appearance Clear (CLEAR) 02/26/20 12:15 Urine pH 6.0 (5.0 - 8.0) 02/26/20 12:15 Ur Specific [place] 1.015 (1.000-1.030) 02/26/20 12:15 Urine Protein Negative (NEGATIVE) 02/26/20 12:15 Urine Glucose (UA) Negative (NEGATIVE) 02/26/20 12:15 Urine Ketones Negative (NEGATIVE) 02/26/20 12:15 Urine Occult Blood Negative (NEGATIVE) 02/26/20 12:15 Urine Nitrite Negative (NEGATIVE) 02/26/20 12:15 Urine Bilirubin Negative (NEGATIVE) 02/26/20 12:15 Urine Urobilinogen Normal (NORMAL) 02/26/20 12:15 Ur Leukocyte Esterase Negative (NEGATIVE) 02/26/20 12:15 Urine RBC 3-5 /HPF (0-3) A 02/21/20 14:00 Urine WBC 30-50 /HPF (0-5) A 02/21/20 14:00 Ur Squamous Epith Cells Few /HPF (NEGATIVE) 02/21/20 14:00 Urine Bacteria 2+ /HPF (NEGATIVE) 02/21/20 14:00 Ur Culture Indicated? Yes/culture set up 02/21/20 14:00 Influenza Type A (PCR) Negative (NEGATIVE) 02/21/20 14:18 Influenza Type B (PCR) Negative (NEGATIVE) 02/21/20 14:18 SARS CoV-2 RNA Rapid HEATHER Positive (NEGATIVE) A 02/21/20 14:18 Plan (1) Pneumonia due to COVID-19 virus: Status: Acute (2) Acute respiratory failure with hypoxia: Status: Acute (3) Acute renal failure: Status: Acute Qualifiers: Acute renal failure type: unspecified Qualified Code(s): N17.9 - Acute kidney failure, unspecified (4) Afib: Status: Acute Qualifiers: Atrial fibrillation type: unspecified Qualified Code(s): I48.91 - Unspecified atrial fibrillation (5) Dementia: Status: Acute Qualifiers: Alzheimer's disease onset: unspecified onset Dementia behavioral disturbance: without behavioral disturbance Dementia type: Alzheimer's disease Qualified Code(s): G30.9 - Alzheimer's disease, unspecified; F02.80 - Dementia in other diseases classified elsewhere without behavioral disturbance (6) Weakness: Status: Acute (7) Hypokalemia: Status: Acute (8) E. coli UTI: Status: Acute
--- NOTE | 2020-03-02 13:23 | RAD ---
HISTORYCOVID HYPOXIASTUDYCHEST, 1 VIEWCOMPARISONDecebanner [facility] 2019TECHNIQUEPortable AP chest radiograph 1 imageFINDINGSNo cardiomegaly.Diffuse right hazy airspace opacity with infiltrate in the right infrahilar region.Left perihilar hazy airspace opacity.No pleural effusion.No pneumothorax.No acute osseous abnormality.IMPRESSIONBilateral airspace opacitiesright greater than left. Overall, the airspace disease in the right lung has progressed when compared to the previous exam.Electronically signed by: Emmett Venegas (Mar 02, 2020 13:21:40)
[2020-03-02] MEDS: LASIX IVP SCH (13:57)
[2020-03-02] MEDS ORDERED: NS 1/2 1000 ML IV 1,000 ML IV ONE (16:32)
[2020-03-02] MEDS ORDERED: DULCOLAX SUPPOSITORY 10 MG RECTAL ONE (18:22)
[2020-03-02] MEDS ORDERED: LOPRESSOR INJ 5 MG AMP IVP ONE (18:36)
[2020-03-03] MEDS: LOPRESSOR INJ 5 MG AMP IVP PRN (02:00)
[2020-03-03] MEDS: XOPENEX 1.25 MG/3 ML NEBULE NEB SCH ×3 (05:05→21:20)
[2020-03-03] MEDS: NS 1/2 1000 ML IV 1,000 ML IV SCH (05:30)
[2020-03-03 06:37] LABS: CALCIUM 9.7 mg/dL (8.5-10.1); CARBON DIOXIDE 31.3 mmol/L (21-32); CREATININE 1.79 mg/dL (0.55-1.02)
[2020-03-03 06:43] LABS: BASOPHILS % (AUTO) 0.1 % (0.2-1.0); HEMATOCRIT 39.5 % (36.0-47.0); HEMOGLOBIN 12.7 g/dL (12.0-16.0); LYMPHOCYTES # (AUTO) 0.8 X10^3/uL (1.3-2.9); LYMPHOCYTES % (AUTO) 3.4 % (21.0-51.0); MEAN CORPUSCULAR HEMOGLOBIN 28.4 pg (27.0-34.0); MEAN CORPUSCULAR HGB CONC 32.1 g/dL (33.0-35.0); MEAN CORPUSCULAR VOLUME 88.5 fL (80.0-100.0); MEAN PLATELET VOLUME 10.2 fL (7.4-11.0); MONOCYTES # (AUTO) 1.4 x10^3/uL (0.3-0.8); MONOCYTES % (AUTO) 6.3 % (0.0-13.0); NEUTROPHILS # (AUTO) 20.6 x10^3/uL (2.2-4.8); NEUTROPHILS % (AUTO) 90.2 % (42.0-75.0); PLATELET COUNT 221 X10^3/uL (150.0-450.0); RED BLOOD COUNT 4.46 X10^6/uL (3.5-5.4); RED CELL DISTRIBUTION WIDTH 15.7 % (11.6-16.5)
[2020-03-03 06:54] LABS: WHITE BLOOD COUNT 22.8 X10^3/uL (3.6-10.0)
[2020-03-03 07:36] LABS: PLATELET MORPHOLOGY COMMENT NORMAL (NORMAL)
[2020-03-03] MEDS: PULMICORT NEB TX 0.5 MG NEB SCH ×2 (09:40→21:20)
[2020-03-03] MEDS: K-DUR TAB 20 MEQ PO SCH (09:43)
[2020-03-03] MEDS: SOLU-Medrol 125 MG VIAL IVP SCH (09:44)
[2020-03-03] MEDS: PROTONIX INJ 40 MG VIAL IVP SCH (09:45)
[2020-03-03] MEDS: NEOSPORIN OINT TOP SCH ×2 (09:45→21:30)
[2020-03-03] MEDS: LOVENOX INJ 40 MG SYR SC SCH (09:45)
[2020-03-03] MEDS: LOPRESSOR TAB 50 MG PO SCH (09:46)
[2020-03-03] MEDS: LEVAQUIN PREMIX IV 250 MG 250 MG/50 ML BAG IV SCH (09:47)
[2020-03-03] MEDS: LASIX IVP SCH (09:47)
[2020-03-03] MEDS: SYNTHROID INJ 100 mcg VIAL IVP SCH (09:54)
[2020-03-03 11:00] LABS: ABG BASE EXCESS 8.5 mmol/L (-2.0-2.0)
[2020-03-03 11:01] LABS: ABG HCO3 31.8 mmol/L (22-26)
[2020-03-03] MEDS ORDERED: NS 1/2 1000 ML IV 1,000 ML IV ONE (14:28)
[2020-03-03] MEDS ORDERED: D5W 1000 ML IV 1,000 ML IV SCH (18:00)
[2020-03-03] MEDS ORDERED: NS 1/2 1000 ML IV 1,000 ML IV SCH (18:00)
[2020-03-04] MEDS: LOPRESSOR INJ 5 MG AMP IVP PRN (00:08)
[2020-03-04 05:34] LABS: BASOPHILS % (AUTO) 0.1 % (0.2-1.0); HEMATOCRIT 39.7 % (36.0-47.0); HEMOGLOBIN 12.4 g/dL (12.0-16.0); LYMPHOCYTES # (AUTO) 0.6 X10^3/uL (1.3-2.9); LYMPHOCYTES % (AUTO) 2.7 % (21.0-51.0); MEAN CORPUSCULAR HGB CONC 31.3 g/dL (33.0-35.0); MEAN CORPUSCULAR VOLUME 89.4 fL (80.0-100.0); MEAN PLATELET VOLUME 10.7 fL (7.4-11.0); MONOCYTES # (AUTO) 1.7 x10^3/uL (0.3-0.8); MONOCYTES % (AUTO) 7.4 % (0.0-13.0); NEUTROPHILS # (AUTO) 20.8 x10^3/uL (2.2-4.8); NEUTROPHILS % (AUTO) 89.8 % (42.0-75.0); PLATELET COUNT 181 X10^3/uL (150.0-450.0); RED BLOOD COUNT 4.44 X10^6/uL (3.5-5.4); RED CELL DISTRIBUTION WIDTH 16.1 % (11.6-16.5); WHITE BLOOD COUNT 23.1 X10^3/uL (3.6-10.0)
[2020-03-04 05:51] LABS: CALCIUM 9.3 mg/dL (8.5-10.1); CREATININE 1.87 mg/dL (0.55-1.02)
[2020-03-04 05:55] LABS: ABG BASE EXCESS 10.6 mmol/L (-2.0-2.0)
[2020-03-04] MEDS: XOPENEX 1.25 MG/3 ML NEBULE NEB SCH ×3 (05:55→21:00)
[2020-03-04 05:56] LABS: ABG HCO3 35.1 mmol/L (22-26)
[2020-03-04 05:57] LABS: ABG ALLEN TEST POS
[2020-03-04 07:10] LABS: BAND NEUTROPHILS % 2 % (0-10); PLATELET MORPHOLOGY COMMENT NORMAL (NORMAL)
[2020-03-04] MEDS: PULMICORT NEB TX 0.5 MG NEB SCH ×2 (09:27→21:00)
[2020-03-04] MEDS ORDERED: DULCOLAX SUPPOSITORY 10 MG RECTAL ONE (09:42)
[2020-03-04] MEDS: LASIX IVP SCH (09:49)
[2020-03-04] MEDS: LEVAQUIN PREMIX IV 250 MG 250 MG/50 ML BAG IV SCH (09:50)
[2020-03-04] MEDS: LOVENOX INJ 40 MG SYR SC SCH (09:50)
[2020-03-04] MEDS: PROTONIX INJ 40 MG VIAL IVP SCH (09:51)
[2020-03-04] MEDS: NEOSPORIN OINT TOP SCH ×2 (09:51→21:10)
[2020-03-04] MEDS: SOLU-Medrol 125 MG VIAL IVP SCH (09:51)
[2020-03-04] MEDS: SYNTHROID INJ 100 mcg VIAL IVP SCH (09:51)
--- NOTE | 2020-03-04 10:37 | RAD ---
HISTORYNG tube placementSTUDYKUBCOMPARISONNoneFINDINGSThere is a nasogastric tube present with the tip and side hole in the expected position of the stomach. The abdominal gas pattern is nonspecific and nonobstructive . No abnormal masses or significant abnormal calcifications are identified.IMPRESSIONNG tube within t he expected position of the stomachNonspecific bowel gas patternElectronically signed by: JONNA ROY (Mar 04, 2020 10:36:05)
[2020-03-04] MEDS: LOPRESSOR TAB 50 MG PO SCH ×3 (11:56→21:10)
[2020-03-04] MEDS: K-DUR TAB 20 MEQ PO SCH (12:14)
[2020-03-04 17:46] LABS: CALCIUM 9.6 mg/dL (8.5-10.1); CARBON DIOXIDE 28.7 mmol/L (21-32); CREATININE 1.92 mg/dL (0.55-1.02)
[2020-03-04] MEDS: HumuLIN R SC PRN (21:10)
[2020-03-05] MEDS: TYLENOL SUPP 650 MG PR PRN (00:08)
--- NOTE | 2020-03-05 05:21 | RAD ---
HISTORYPNEUMONIASTUDYCHEST, 1 [id number]/2020FINDINGSThe trachea is midline. Nasogastric tube tip at the gastroesophageal junction and should be advanced into the stomach. The cardiac silhouette is unremarkable. Bibasilar infiltrates unchanged. No pneumothorax.. The bony thorax is unremarkable.IMPRESSIONNG tube tip at the GE junction and should be advanced into the stomach.Bibasilar infiltrates unchangedElectronically signed by: Deonte Pearce (Mar 05, 2020 05:19:51)
[2020-03-05] MEDS: HumuLIN R SC PRN (06:10)
[2020-03-05 06:14] LABS: BASOPHILS % (AUTO) 0.1 % (0.2-1.0); HEMATOCRIT 41.4 % (36.0-47.0); HEMOGLOBIN 12.5 g/dL (12.0-16.0); LYMPHOCYTES # (AUTO) 0.6 X10^3/uL (1.3-2.9); LYMPHOCYTES % (AUTO) 2.4 % (21.0-51.0); MEAN CORPUSCULAR HEMOGLOBIN 27.3 pg (27.0-34.0); MEAN CORPUSCULAR HGB CONC 30.3 g/dL (33.0-35.0); MEAN CORPUSCULAR VOLUME 90.1 fL (80.0-100.0); MEAN PLATELET VOLUME 11.3 fL (7.4-11.0); MONOCYTES # (AUTO) 2.2 x10^3/uL (0.3-0.8); MONOCYTES % (AUTO) 8.4 % (0.0-13.0); NEUTROPHILS # (AUTO) 23.5 x10^3/uL (2.2-4.8); NEUTROPHILS % (AUTO) 89.1 % (42.0-75.0); PLATELET COUNT 167 X10^3/uL (150.0-450.0); RED BLOOD COUNT 4.59 X10^6/uL (3.5-5.4); RED CELL DISTRIBUTION WIDTH 15.8 % (11.6-16.5); WHITE BLOOD COUNT 26.4 X10^3/uL (3.6-10.0)
[2020-03-05 06:21] LABS: CALCIUM 9.3 mg/dL (8.5-10.1); CARBON DIOXIDE 28.4 mmol/L (21-32); COR CA(FOR HYPOALB) 10.9 mg/dL (8.5-10.1); CREATININE 2.13 mg/dL (0.55-1.02); TOTAL PROTEIN 5.2 g/dL (6.4-8.2)
[2020-03-05] MEDS: XOPENEX 1.25 MG/3 ML NEBULE NEB SCH ×2 (06:30→12:15)
[2020-03-05 08:06] LABS: BAND NEUTROPHILS % 1 % (0-10); PLATELET MORPHOLOGY COMMENT NORMAL (NORMAL)
[2020-03-05 08:13] LABS: ABG BASE EXCESS 7.2 mmol/L (-2.0-2.0)
[2020-03-05 08:14] LABS: ABG ALLEN TEST POS; ABG HCO3 31.2 mmol/L (22-26)
[2020-03-05] MEDS: K-DUR TAB 20 MEQ PO SCH (09:40)
[2020-03-05] MEDS: LOPRESSOR TAB 50 MG PO SCH (09:40)
[2020-03-05] MEDS: NEOSPORIN OINT TOP SCH (09:48)
[2020-03-05] MEDS: LOVENOX INJ 40 MG SYR SC SCH (09:49)
[2020-03-05] MEDS: LEVAQUIN PREMIX IV 250 MG 250 MG/50 ML BAG IV SCH (09:50)
[2020-03-05] MEDS: PROTONIX INJ 40 MG VIAL IVP SCH (09:55)
[2020-03-05] MEDS ORDERED: KAYEXALATE SUSP PO NR (10:00)
[2020-03-05] MEDS ORDERED: SYNTHROID INJ 100 mcg VIAL ONE (10:01)
[2020-03-05] MEDS: PULMICORT NEB TX 0.5 MG NEB SCH (10:05)
[2020-03-05] MEDS ORDERED: REGLAN INJ 10 MG VIAL IVP ONE (15:42)
[2020-03-05] MEDS: SYNTHROID INJ 100 mcg VIAL IVP SCH (15:43)
[2020-03-05] MEDS: SOLU-Medrol 125 MG VIAL IVP SCH (15:44)
[2020-03-05] MEDS ORDERED: D5W 1000 ML IV 1,000 ML IV SCH (16:00)
[2020-03-05 16:19] LABS: CALCIUM 9.9 mg/dL (8.5-10.1); CARBON DIOXIDE 25.9 mmol/L (21-32); CREATININE 3.22 mg/dL (0.55-1.02)
--- NOTE | 2020-03-05 16:19 | RAD ---
PROCEDURE: Abdomen single view.HISTORY: ABD DISTENTION .TECHNIQUE: AP supine abdomen view .COMPARISON: 03/04/2020.TECHNICAL QUALITY: Satisfactory .FINDINGS:NG tube tip projected over body of the stomach.Continued small bowel gas could be related localized ileus or early obstruction and is unchanged. Minimal gas and feces in the colon.No organomegaly.IMPRESSION:Unchanged small bowel gas could be related to early obstruction or localized ileus.Electronically signed by: Rehan Dalal (Mar 05, 2020 16:17:53)
[2020-03-05 16:24] LABS: ALBUMIN 2.1 g/dL (3.4-5.0); COR CA(FOR HYPOALB) 11.4 mg/dL (8.5-10.1); TOTAL PROTEIN 5.6 g/dL (6.4-8.2)
[2020-03-05] MEDS ORDERED: ROCEPHIN 1 GRAM IV PREMIX 1 G/50 ML IV.SOLN. IV SCH (17:21)
[2020-03-05] MEDS ORDERED: D5W 1000 ML IV 1,000 ML IV ONE (17:25)
[2020-03-05] MEDS ORDERED: ZITHROMAX INJ 500 MG VIAL 250 MG in D5W 250 ML IV 250 ML IV SCH (18:00)
[2020-03-05] MEDS ORDERED: KAYEXALATE SUSP RECTAL NR (18:00)
[2020-03-05] MEDS ORDERED: ZITHROMAX INJ 500 MG VIAL IV ONE (18:19)
[2020-03-05] MEDS ORDERED: D5W 250 ML IV 250 ML IV ONE (18:19)
[2020-03-05] MEDS ORDERED: ADRENALINE CHL INJ (ABBOJECT) IVP ONE (19:00)
[2020-03-06 03:47] VITALS: BP 0/0
== END 2020-03-05 22:27 | disposition expired | DRG 177 ==
LOC: ER 10:51 → MED/SURG 10:51 → ICU 02-26 16:42
PROVIDERS: ADMIT Internal Medicine; ATTEND Internal Medicine
DX: Z78.1 Physical restraint status; E87.5 Hyperkalemia; U07.1 COVID-19; R79.82 Elevated C-reactive protein (CRP); R26.89 Other abnormalities of gait and mobility; J12.89 Other viral pneumonia; R79.89 Other specified abnormal findings of blood chemistry; I50.9 Heart failure, unspecified; B96.29 Other Escherichia coli [E. coli] as the cause of diseases classified elsewhere; G30.9 Alzheimer's disease, unspecified; Z66 Do not resuscitate; I48.91 Unspecified atrial fibrillation; R94.31 Abnormal electrocardiogram [ECG] [EKG]; J44.9 Chronic obstructive pulmonary disease, unspecified; N39.0 Urinary tract infection, site not specified; E11.65 Type 2 diabetes mellitus with hyperglycemia; J96.01 Acute respiratory failure with hypoxia; I46.9 Cardiac arrest, cause unspecified; N17.8 Other acute kidney failure; R53.1 Weakness; F02.80 Dementia in other diseases classified elsewhere, unspecified severity, without behavioral disturbance, psychotic disturbance, mood disturbance, and anxiety; E86.0 Dehydration; E87.0 Hyperosmolality and hypernatremia